=== PATIENT | female | born 1955 | race Hispanic/Latino ===

== ENCOUNTER 2018-06-01 10:37 | Inpatient (IN) | payer OTHER ==
[~2018-06-01] VITALS: Ht 165.1 cm; Wt 79.2 kg
[2018-06-01] VITALS (14 sets, daily range): BP systolic 88–108; BP diastolic 49–67
[2018-06-01] MEDS ORDERED: EPINEPHRINE 0.1 MG/ML 10 ML SYG IVP ONE (11:01)
[2018-06-01] MEDS ORDERED: ATROPINE SULFATE 0.1 MG/ML 10 ML SYG IVP ONE ×3 (11:01→15:11)
[2018-06-01] MEDS ORDERED: IOHEXOL 350 MG/ML 100ML INFUS..BTL IV ONE (12:06)
[2018-06-01] MEDS ORDERED: NITROGLYCERIN 5 MG/ML 10 ML VIAL IV ONE (12:06)
[2018-06-01] MEDS ORDERED: IOHEXOL-350 50ML VIAL IV ONE (12:06)
[2018-06-01] MEDS ORDERED: BIVALIRUDIN 250 MG/VIAL IV ONE (12:06)
[2018-06-01] MEDS ORDERED: LIDOCAINE HCL 2% 20ML ONE (12:07)
[2018-06-01] MEDS ORDERED: DOPAMINE HCL 400 MG/D5%-WATER 0 ML IV ONE (12:08)
[2018-06-01] MEDS ORDERED: DOPAMINE HCL 400 MG/D5%-WATER 250 ML IV ONE (15:11)
[2018-06-01] MEDS ORDERED: ETOMIDATE 2 MG/ML 10 ML VIAL IVP ONE (15:12)
[2018-06-01] MEDS ORDERED: SUCCINYLCHOLINE CHLORIDE 20 MG/ML 10 ML VIAL IVP ONE (15:12)
[2018-06-01] MEDS ORDERED: GLUCAGON 1MG KIT 1 MG ML IM PRN (15:15)
[2018-06-01] MEDS ORDERED: PHARMACY COMMUNICATION MISC SCH (15:15)
[2018-06-01] MEDS ORDERED: DEXTROSE 50%-WATER 50 ML DISP.SYRIN IV PRN (15:15)
--- NOTE | 2018-06-01 16:20 | NUR ---
PT RECEIVED FROM FUMIGATOR AND STERILIZER S/P LHC/RHC. RT GROIN ARTERIAL AND VENOUS SHEATHS HAVE BEEN REMOVED IN FUMIGATOR AND STERILIZER. NO HEMATOMA'S NOTED. PEDAL PULSES WEAK BILATERALLY. NO CHEST PAIN OR SOB. DR LÓPEZ NEPHROLOGY HAS BEEN PAGED, DR DUFFY NOTIFED BY FUMIGATOR AND STERILIZER AND DR SIMON TOLD VERBALLY OF PATIENT ARRIVAL TO ROOM
[2018-06-01] MEDS: INSULIN HUMULIN R 100 UNIT/ML 3ML SQ SCH ×2 (16:30→21:52)
--- NOTE | 2018-06-01 16:57 | NUR ---
DC PLAN VISITED WITH PATIENT. PATIENT LIVES WITH SPOUSE. INDEPENDENT ABLE TO PERFORM ADL'S. PATIENT HAS NO SERVICES OR DME'S. FEELS SAFE TO RETURN HOME. PATIENT IS A CARROLL TRANSFER FOR PROCEDURE. Addendum: 06/01/18 at 1659 by AMANDA WARE RN CM Amended: Links added.
--- NOTE | 2018-06-01 16:57 | NUR ---
DR Shweta LÓPEZ CAME TO SEE PATIENT
[2018-06-01] MEDS: SEVELAMER HCL 800 MG TABLET PO SCH (17:00)
[2018-06-01] MEDS ORDERED: FERROUS SULFATE 325 MG TABLET.DR PO SCH (17:00)
[2018-06-01] MEDS: SODIUM CHLORIDE 0.9% 10 ML VIAL IVP SCH ×2 (17:03→21:53)
--- NOTE | 2018-06-01 18:00 | NUR ---
DR YIN HERE SPOKE TO PATIENT AND FAMILY. INFORMED THEM THAT SHE IS HIGH RISK AND INOPERABLE-RECOMMENDS MEDICAL MANAGEMENT
[2018-06-01] MEDS ORDERED: MIDODRINE HCL 5 MG TABLET PO SCH (18:17)
--- NOTE | 2018-06-01 20:00 | NUR ---
ASSESSMENT. PT RESTING QUIETLY IN BED, O2 2L NC IN PLACE, FAMILY AT BEDSIDE. OPEN AREA TO COCCYX NOTED, OPEN TO AIR. ASSESSMENT COMPLETED, SEE FLOW SHEET. CALLBELL REVIEWED AND WITHIN REACH, WHITE BOARD UP-DATED.
[2018-06-01] MEDS ORDERED: ACETAMINOPHEN 325 MG TAB PO PRN ×2 (21:00)
[2018-06-01] MEDS: CARVEDILOL 3.125 MG TABLET PO SCH (21:00)
[2018-06-01] MEDS: DOCUSATE SODIUM 100 MG CAP PO SCH (21:38)
[2018-06-01] MEDS: MIDODRINE HCL 5 MG TABLET PO SCH (21:38)
[2018-06-01] MEDS: ATORVASTATIN CALCIUM 20 MG TABLET PO SCH (21:38)
[2018-06-01] MEDS: SENNOSIDES 8.6 MG TABLET PO SCH (21:49)
--- NOTE | 2018-06-01 22:00 | NUR ---
DR AURORA SIMON INTO SEE PT. SPOKE TO PT AND HER IN KYRGYZ, SEE ORDERS
[2018-06-02] VITALS (23 sets, daily range): BP systolic 88–116; BP diastolic 37–66
--- NOTE | 2018-06-02 | NUR ---
ASSESSMENT. PT RESTING QUIETLY IN BED, O2 2L NC IN PLACE, FAMILY AT BEDSIDE. ALLEVYN TO COCCYX. ASSESSMENT COMPLETED, SEE FLOW SHEET. BASIL REVIEWED AND WITHIN ABBE WATSON BOARD UP-DATED.
--- NOTE | 2018-06-02 04:00 | NUR ---
ASSESSMENT. PT RESTING QUIETLY IN BED, O2 2L NC IN PLACE, AT BEDSIDE. ALLEVYN TO COCCYX. ASSESSMENT COMPLETED, SEE FLOW SHEET. BASIL REVIEWED AND WITHIN WALTER, WHITE BOARD UP-DATED.
[2018-06-02 04:03] LABS: HEMATOCRIT 24.5 % (36-48); MEAN CORPUSCULAR HEMOGLOBIN 26.1 pg (27.0-33.0); MEAN CORPUSCULAR VOLUME 81.5 fL (79-99); NUCLEATED RED BLOOD CELLS 0.7 % (0.0-0.19); PLATELET COUNT (AUTO) 178 K/uL (130-400); WHITE BLOOD COUNT (AUTO) 8.7 K/uL (4.8-10.8)
[2018-06-02 04:20] LABS: ALBUMIN 2.4 g/dL (3.5-5.0); BILIRUBIN,TOTAL 0.6 mg/dL (0.2-1.0); CREATININE 4.9 mg/dL (0.5-1.5); PHOSPHORUS 4.8 mg/dL (2.5-4.9); POTASSIUM 4.2 mmol/L (3.5-5.1); TOTAL PROTEIN, SERUM 5.7 g/dL (6.0-8.3)
[2018-06-02 04:38] LABS: % IRON SATURATION 15.3 % (22-44)
[2018-06-02] MEDS: INSULIN HUMULIN R 100 UNIT/ML 3ML SQ SCH ×4 (06:18→20:47)
[2018-06-02] MEDS ORDERED: PANTOPRAZOLE SODIUM 40 MG TABLET.DR PO ONE (06:20)
[2018-06-02] MEDS: PANTOPRAZOLE SODIUM 40 MG TABLET.DR PO SCH ×2 (06:22→08:46)
[2018-06-02] MEDS: SODIUM CHLORIDE 0.9% 10 ML VIAL IVP SCH ×3 (06:23→23:15)
--- NOTE | 2018-06-02 07:04 | NUR ---
REPORT REPORT GIVEN TO HUNG GOVEA.
[2018-06-02] MEDS: HEPARIN SODIUM 5000UNIT/ML 1ML VIAL SQ SCH ×2 (08:44→21:02)
[2018-06-02] MEDS: ASPIRIN 81MG TAB.CHEW PO SCH (08:45)
[2018-06-02] MEDS: SENNOSIDES 8.6 MG TABLET PO SCH (08:45)
[2018-06-02] MEDS: DOCUSATE SODIUM 100 MG CAP PO SCH ×3 (08:46→21:00)
[2018-06-02] MEDS: CLOPIDOGREL BISULFATE 75 MG TAB PO SCH (08:46)
[2018-06-02] MEDS: SEVELAMER HCL 800 MG TABLET PO SCH ×3 (08:46→16:40)
[2018-06-02] MEDS: CARVEDILOL 3.125 MG TABLET PO SCH ×2 (08:47→21:00)
[2018-06-02] MEDS: MIDODRINE HCL 5 MG TABLET PO SCH ×4 (08:47→21:00)
[2018-06-02] MEDS ORDERED: ERGOCALCIFEROL (VITAMIN D2) 50,000 UNIT CAPSULE PO SCH (09:00)
[2018-06-02] MEDS: FERROUS FUMARATE 324 MG TABLET PO SCH (11:45)
[2018-06-02] MEDS: ISOSORBIDE MONO 30MG TAB SR PO SCH (11:45)
[2018-06-02] MEDS: RANOLAZINE 500 MG TAB.SR.12H PO SCH ×2 (11:45→21:00)
--- NOTE | 2018-06-02 13:30 | NUR ---
PT HAS BEEN TALKING WITH DR. LÓPEZ ABOUT DNR STATUS AND PAPERWORK WAS SIGNED. WAS AT THE BEDSIDE AND ALSO AGREED WITH PATIENT AND DR. LÓPEZ.
[2018-06-02] MEDS: EPOETIN ALFA 10,000 UNIT/ML VIAL SQ SCH (13:45)
[2018-06-02] MEDS ORDERED: ESCI10TA54 PO (14:11)
[2018-06-02] MEDS ORDERED: PANT40TA25 PO (14:11)
[2018-06-02] MEDS ORDERED: TRAM50TA4 PO (14:11)
[2018-06-02] MEDS ORDERED: AMLO10TA7 PO (14:11)
[2018-06-02] MEDS ORDERED: INSU100I26 SQ (14:11)
[2018-06-02] MEDS ORDERED: GUAI600T50 PO (14:11)
[2018-06-02] MEDS ORDERED: FERS325 PO (14:11)
[2018-06-02] MEDS ORDERED: EZET10TA26 PO (14:11)
[2018-06-02] MEDS ORDERED: CETI10TA57 PO (14:11)
[2018-06-02] MEDS ORDERED: LINA5TAB PO (14:11)
[2018-06-02] MEDS ORDERED: METO-408 PO (14:11)
[2018-06-02] MEDS ORDERED: KETO5DRO39 OD (14:11)
[2018-06-02] MEDS ORDERED: ATOR40TA71 PO (14:11)
--- NOTE | 2018-06-02 15:05 | NUR ---
PT REPORT GIVEN TO EVGENY NELSON RN. DAUGHTER QUESTIONING IF DNR MEANT THAT SHE WOULD NOT BE CARED FOR, DAUGHTER WAS REASSURED THAT HER MOTHER WOULD STILL BE GETTING ALL OF HER MEDS AND TREATMENTS ORDERED. PT TAKEN TO ROOM 232 VIA BED.
[2018-06-02] MEDS ORDERED: ALBUMIN (HUMAN) 25% 100 ML IV PRN ×2 (15:15→18:45)
--- NOTE | 2018-06-02 15:51 | NUR ---
PATIENT REQUESTED TO CANCEL DNR STATUS.
--- NOTE | 2018-06-02 16:00 | NUR ---
DAUGHTER AT BEDSIDE WAS VERY UPSET STATING THAT PATIENT DID NOT FULLY UNDERSTAND WHAT SIGNING THE DNR STATUS MEANT. DAUGHTER AND PATIENT DECIDED TO REVOKE DNR STATUS. PER DAUGHTER, IF PATIENT "IS NOT BREATHING BUT STILL HAS A PULSE, WE WANT EVERYTHING DONE TO KEEP HER ALIVE. IF SHE DOES NOT HAVE A HEART BEAT, THEN WE'LL LET HER BE.SHE'S FULL CODE RIGHT NOW AND WE WILL WORRY ABOUT IT WHEN IT HAPPENS".
--- NOTE | 2018-06-02 16:04 | NUR ---
SPOKE WITH UMANG RÍOS WEATHER ALGORITHM SCIENTIST AND INFORMED HER THAT DAUGHTER REVOKED DNR STATUS. SHE SAID THAT SHE WILL RELAY THIS TO DR. LÓPEZ WHO HAD ORDERED DNR STATUS EARLIER TODAY.
--- NOTE | 2018-06-02 16:28 | NUR ---
DAUGHTER AT BEDSIDE CALLED NURSES STATION AND C/O HEMODIALYSIS TAKING TOO LONG. SHE SAID THAT PATIENT IS HAVING TROUBLE BREATHING. O2 SAT CHECKED. 100% ON 3L PER NASAL CANNULA. CALLED HEMODIALYSIS NURSE ZONING ASSISTANT,AWA AND INFORMED HIM THAT PATIENT NEEDS BE DIALYSED TODAY ORDERED. HE SAID THAT HE IS IN ANOTHER HOSPITAL AT THIS TIME. CALLED BALJEET GOVEA WHO IS CURRENTLY IN 4TH FLOOR AND SAID THAT SHE IS DIALYSING ANOTHER PATIENT AT THIS TIME BUT WILL CHECK ON MS. [place] ONCE DONE. INFORMED PATIENT AND FAMILY MEMBER OF THIS. WILL CONTINUE TO MONITOR PATIENT.
[2018-06-02] MEDS ORDERED: ALBUMIN (HUMAN) 25% 200 ML IV ONE (17:47)
[2018-06-02 19:55] LABS: ALBUMIN 3.5 g/dL (3.5-5.0)
[2018-06-02 20:26] LABS: % IRON SATURATION 20.3 % (22-44)
[2018-06-02] MEDS ORDERED: SODIUM CHLORIDE 0.9% 1000ML 1,000 ML IV ONE (20:31)
[2018-06-02 20:41] LABS: HEMATOCRIT 23.3 % (36-48)
[2018-06-02] MEDS: ATORVASTATIN CALCIUM 20 MG TABLET PO SCH (21:00)
[2018-06-03] VITALS (24 sets, daily range): BP systolic 77–98; BP diastolic 45–77
[2018-06-03 03:45] LABS: HEMATOCRIT 23.2 % (36-48); MEAN CORPUSCULAR HEMOGLOBIN 25.3 pg (27.0-33.0); MEAN CORPUSCULAR HGB CONC 31.3 g/dL (32.0-36.0); MEAN CORPUSCULAR VOLUME 80.8 fL (79-99); NUCLEATED RED BLOOD CELLS 0.4 % (0.0-0.19); PLATELET COUNT (AUTO) 177 K/uL (130-400); RED BLOOD CELL COUNT(AUTO) 2.87 MIL/uL (4.00-5.50); RED CELL DISTRIBUTION WIDTH 18.2 % (11.0-15.5); WHITE BLOOD COUNT (AUTO) 7.8 K/uL (4.8-10.8)
[2018-06-03 04:02] LABS: EOSINOPHILS % (MANUAL) 2 % (1-6); LYMPHOCYTES % (MANUAL) 22 % (22-44); MONOCYTES % (MANUAL) 5 % (2-9); SEGMENTED NEUTROPHILS % 71 % (40-70)
[2018-06-03 04:03] LABS: MAN.DIFF COMMENT-IMPRESSION MANUAL DIFFERENTIAL
[2018-06-03 04:21] LABS: CREATININE 3.8 mg/dL (0.5-1.5); POTASSIUM 4.2 mmol/L (3.5-5.1)
[2018-06-03] MEDS: SODIUM CHLORIDE 0.9% 10 ML VIAL IVP SCH ×3 (06:24→20:25)
[2018-06-03] MEDS: INSULIN HUMULIN R 100 UNIT/ML 3ML SQ SCH ×4 (06:25→20:20)
[2018-06-03] MEDS: CITALOPRAM 20 MG TABLET PO SCH (08:37)
[2018-06-03] MEDS: ISOSORBIDE MONO 30MG TAB SR PO SCH (08:37)
[2018-06-03] MEDS: CARVEDILOL 3.125 MG TABLET PO SCH ×2 (08:37→19:50)
[2018-06-03] MEDS: ASPIRIN 81MG TAB.CHEW PO SCH (08:38)
[2018-06-03] MEDS: SENNOSIDES 8.6 MG TABLET PO SCH (08:38)
[2018-06-03] MEDS: FERROUS FUMARATE 324 MG TABLET PO SCH (08:38)
[2018-06-03] MEDS: CLOPIDOGREL BISULFATE 75 MG TAB PO SCH (08:38)
[2018-06-03] MEDS: SEVELAMER HCL 800 MG TABLET PO SCH ×3 (08:38→17:00)
[2018-06-03] MEDS: MIDODRINE HCL 5 MG TABLET PO SCH ×4 (08:38→20:13)
[2018-06-03] MEDS: DOCUSATE SODIUM 100 MG CAP PO SCH ×3 (08:38→19:50)
[2018-06-03] MEDS: RANOLAZINE 500 MG TAB.SR.12H PO SCH ×2 (08:43→21:09)
[2018-06-03] MEDS: HEPARIN SODIUM 5000UNIT/ML 1ML VIAL SQ SCH ×2 (10:10→20:19)
--- NOTE | 2018-06-03 12:20 | NUR ---
DR. LÓPEZ IS MAKING HIS ROUNDS. EXPLAINED TO PATIENT AND SPOUSE AT BEDSIDE HER PROGNOSIS. DR. LÓPEZ MENTIONED HOSPICE BUT SHE REFUSED THEIR SERVICES AT THIS TIME. ALL MEDS REVIEWED. IS AWARE OF HYPOTENSION.
[2018-06-03] MEDS: IRON SUCROSE COMPLEX 100 MG in SODIUM CHLORIDE 0.9% 50 ML IV SCH (12:22)
--- NOTE | 2018-06-03 12:50 | NUR ---
DAUGHTER AT BEDSIDE REQUESTED THAT DNR FORM SIGNED YESTERDAY BE REMOVED FROM PATIENT'S MEDICAL RECORDS. I INFORMED HER THAT THIS CANNOT BE DONE FORM ALREADY IS A LEGAL DOCUMENT BECAUSE IT WAS SIGNED. DAUGHTER THEN HANDED A HANDWRITTEN LETTER STATING THAT THE [place] FAMILY HAD REVOKED DNR STATUS YESTERDAY. SEE LETTER IN CHART.
--- NOTE | 2018-06-03 13:00 | NUR ---
DAUGHTER VOICED THAT SHE AND PATIENT ARE VERY UPSET THAT DOCTORS KEEP TELLING HER THAT SHE WILL WITHIN 6 MONTHS. THIS IS MAKING HER MOTHER MORE DEPRESSED. DAUGHTER REQUESTED FOR HOSPITAL PERSONNEL TO REFRAIN FROM TALKING ABOUT HOSPICE AND TELLING HER AGAIN HER PROGNOSIS SHE ALREADY KNOWS AND HAD ACCEPTED IT.
[2018-06-03] MEDS: EPOETIN ALFA 10,000 UNIT/ML VIAL SQ SCH (13:45)
--- NOTE | 2018-06-03 14:40 | NUR ---
1412 PATIENT WAS FOUND UNRESPONSIVE BY FAMILY MEMBERS. TELE MONITOR REPORTED SINUS ALON IN THE 40'S. (+) PULSE AND (+) BREATHING. VITAL SIGNS TAKEN. CODE BLUE CALLED. SEE CODE DOCUMENTATION. PATIENT WAS TRANSFERRED TO [facility]. WHEN ASKED ONCE AGAIN ABOUT HER CODE STATUS, PATIENT DEFERRED THIS TO HER DAUGHTERS WHO SAID THAT THEY WOULD WAIT FOR THEIR FATHER.
--- NOTE | 2018-06-03 19:30 | NUR ---
ASSESSMENT. PT RESTING QUIETLY IN BED, O2 3L NC IN PLACE, FAMILY AT BEDSIDE. JAYDAVYN NOTED TO MILDRED. ASSESSMENT COMPLETED, SEE FLOW SHEET. BASIL REVIEWED AND WITHIN ABBE WATSON BOARD UP-DATED.
[2018-06-03] MEDS: ATORVASTATIN CALCIUM 20 MG TABLET PO SCH (20:12)
--- NOTE | 2018-06-03 23:00 | NUR ---
ASSESSMENT. PT RESTING QUIETLY IN BED, BIPAP IN PLACE. AT BEDSIDE. IV FLUIDS INFUSING WITHOUT DIFFICULTY. ASSESSMENT COMPLETED, SEE FLOW SHEET. CALLBELL WITHIN REACH.
[2018-06-03] MEDS ORDERED: [UNRECOGNIZED DRUG - OTHER] IV ONE (23:16)
[2018-06-03] MEDS ORDERED: DOPAMINE IV ONE (23:16)
[2018-06-04] VITALS (24 sets, daily range): BP systolic 87–130; BP diastolic 43–71
--- NOTE | 2018-06-04 03:00 | NUR ---
ASSESSMENT. PT RESTING QUIETLY IN BED, BIPAP IN PLACE. AT BEDSIDE. IV FLUIDS INFUSING WITHOUT DIFFICULTY. ASSESSMENT COMPLETED, SEE FLOW SHEET. CALLBELL WITHIN REACH.
[2018-06-04 04:01] LABS: POTASSIUM 5.9 mmol/L (3.5-5.1)
[2018-06-04] MEDS: SODIUM CHLORIDE 0.9% 10 ML VIAL IVP SCH ×3 (05:53→22:59)
[2018-06-04] MEDS: INSULIN HUMULIN R 100 UNIT/ML 3ML SQ SCH ×4 (05:53→20:40)
[2018-06-04] MEDS: PANTOPRAZOLE SODIUM 40 MG TABLET.DR PO SCH (05:55)
--- NOTE | 2018-06-04 07:06 | NUR ---
REPORT REPORT GIVEN TO RADHA GOVEA.
[2018-06-04] MEDS: ISOSORBIDE MONO 30MG TAB SR PO SCH (08:11)
[2018-06-04] MEDS: RANOLAZINE 500 MG TAB.SR.12H PO SCH ×2 (08:12→21:00)
[2018-06-04] MEDS: CLOPIDOGREL BISULFATE 75 MG TAB PO SCH (08:12)
[2018-06-04] MEDS: ASPIRIN 81MG TAB.CHEW PO SCH (08:13)
[2018-06-04] MEDS: SENNOSIDES 8.6 MG TABLET PO SCH (08:13)
[2018-06-04] MEDS: SEVELAMER HCL 800 MG TABLET PO SCH ×3 (08:13→17:22)
[2018-06-04] MEDS: CITALOPRAM 20 MG TABLET PO SCH (08:14)
[2018-06-04] MEDS: CARVEDILOL 3.125 MG TABLET PO SCH ×2 (08:15→21:02)
[2018-06-04] MEDS: IRON SUCROSE COMPLEX 100 MG in SODIUM CHLORIDE 0.9% 50 ML IV SCH (08:16)
[2018-06-04] MEDS: HEPARIN SODIUM 5000UNIT/ML 1ML VIAL SQ SCH ×2 (08:17→21:03)
[2018-06-04] MEDS: DOCUSATE SODIUM 100 MG CAP PO SCH ×3 (08:22→21:01)
[2018-06-04] MEDS: FERROUS FUMARATE 324 MG TABLET PO SCH (08:23)
[2018-06-04] MEDS: MIDODRINE HCL 5 MG TABLET PO SCH ×4 (08:24→22:58)
[2018-06-04] MEDS ORDERED: ONDANSETRON HCL 4 MG/2 ML VIAL ONE (10:07)
--- NOTE | 2018-06-04 10:30 | NUR ---
MEETING W/ FAMILY AND DR SIMON/ DR Jojo LÓPEZ - DNR TO DISCUSS DNR STATUS WITH FAMILY MEMBERS, DR SIMON AND DR LÓPEZ AT BEDSIDE NOW. FAMILY INFORMED OF PATIENT'S TERMINAL ILLNESS, EXPLAINED THAT PATIENT HAS NOW CODED MULTIPLE TIMES AT ANCHORAGE AND NOW HERE YESTERDAY, AND ASSURED FAMILY THAT MAKING A PATIENT 'DNR' DOES NOT MEAN THAT TREATMENTS STOP OR THAT THE PATIENT 'WANTS TO '. DAUGHTER STATES THAT THEY READ AN ARTICLE ONLINE THAT EXPLAINED WHEN A PATIENT SIGNS A DNR THE DOCTORS BELIEVE THE PATIENT WANTS TO AND SO THEY NO LONGER PAY ATTENTION TO THE PATIENT OR COME BY EVERYDAY. FAMILY SIGNED DNR
[2018-06-04] MEDS ORDERED: MORPHINE SULFATE 2 MG/ML 1ML SYG IVP PRN (11:00)
[2018-06-04] MEDS ORDERED: COMPOUND IV MISC 1 EACH IVSOLN MISC PRN (11:30)
[2018-06-04] MEDS: EPOETIN ALFA 10,000 UNIT/ML VIAL SQ SCH (13:45)
--- NOTE | 2018-06-04 16:00 | NUR ---
cm note call made to hannah sevilla at [facility] [phone] , and states that she was [place] [facility] states she referred HD setup to [facility] and [facility] and both denied due to insurance, then referred to [facility] ph# [phone] , states their md dr arthur, spoke to Trevino at [facility] and agreed to take pt at [facility], but, now is pending for financial clearance at [facility] dialysis. i spoke to JACEK infante at [facility] and he confirmed that they are pending financial clearance, but info was faxed to them by [facility] if anything pending they will call [facility]. updated jennifer primary nurse. on above.
[2018-06-04] MEDS ORDERED: SODIUM CHLORIDE 0.9% 1000ML 1,000 ML IV PRN (17:00)
[2018-06-04] MEDS ORDERED: 0.9% SODIUM CHLORIDE 1000 ML IV BAG IV PRN (17:00)
[2018-06-04] MEDS: HEPARIN SODIUM 5000UNIT/ML 1ML VIAL IJ PRN (17:05)
[2018-06-04] MEDS ORDERED: HYDROMORPHONE HCL 0.5 MG/0.5 ML ML IVP PRN (19:00)
[2018-06-04] MEDS ORDERED: DOPAMINE 800MG/D5 250ML 250 ML IV ONE (19:07)
[2018-06-04] MEDS: ATORVASTATIN CALCIUM 20 MG TABLET PO SCH (21:00)
[2018-06-05] VITALS (31 sets, daily range): BP systolic 92–143; BP diastolic 49–78
[2018-06-05 05:09] LABS: HEMATOCRIT 27.1 % (36-48); MEAN CORPUSCULAR HEMOGLOBIN 25.3 pg (27.0-33.0); MEAN CORPUSCULAR VOLUME 81.5 fL (79-99); NUCLEATED RED BLOOD CELLS 0.9 % (0.0-0.19); PLATELET COUNT (AUTO) 228 K/uL (130-400); RED BLOOD CELL COUNT(AUTO) 3.33 MIL/uL (4.00-5.50); RED CELL DISTRIBUTION WIDTH 18.4 % (11.0-15.5); WHITE BLOOD COUNT (AUTO) 15.3 K/uL (4.8-10.8)
[2018-06-05 05:32] LABS: CREATININE 3.9 mg/dL (0.5-1.5)
[2018-06-05] MEDS: SODIUM CHLORIDE 0.9% 10 ML VIAL IVP SCH ×3 (06:52→22:41)
[2018-06-05] MEDS: INSULIN HUMULIN R 100 UNIT/ML 3ML SQ SCH ×4 (06:53→21:00)
[2018-06-05] MEDS: SENNOSIDES 8.6 MG TABLET PO SCH (07:49)
[2018-06-05] MEDS: SEVELAMER HCL 800 MG TABLET PO SCH ×3 (07:49→17:26)
[2018-06-05] MEDS: PANTOPRAZOLE SODIUM 40 MG TABLET.DR PO SCH (07:49)
[2018-06-05] MEDS: ASPIRIN 81MG TAB.CHEW PO SCH (07:49)
[2018-06-05] MEDS: ISOSORBIDE MONO 30MG TAB SR PO SCH (07:50)
[2018-06-05] MEDS: CARVEDILOL 3.125 MG TABLET PO SCH ×2 (07:50→22:18)
[2018-06-05] MEDS: FERROUS FUMARATE 324 MG TABLET PO SCH (07:50)
[2018-06-05] MEDS: RANOLAZINE 500 MG TAB.SR.12H PO SCH ×2 (07:50→22:19)
[2018-06-05] MEDS: CLOPIDOGREL BISULFATE 75 MG TAB PO SCH (07:55)
[2018-06-05] MEDS: IRON SUCROSE COMPLEX 100 MG in SODIUM CHLORIDE 0.9% 50 ML IV SCH (07:56)
[2018-06-05] MEDS: CITALOPRAM 20 MG TABLET PO SCH (07:59)
[2018-06-05] MEDS: MIDODRINE HCL 5 MG TABLET PO SCH ×4 (08:00→22:17)
[2018-06-05] MEDS: DOCUSATE SODIUM 100 MG CAP PO SCH ×3 (08:03→22:17)
[2018-06-05] MEDS: HEPARIN SODIUM 5000UNIT/ML 1ML VIAL SQ SCH ×2 (08:03→22:30)
[2018-06-05 08:17] LABS: HEPATITIS Bs ANTIGEN SCREEN P Negative (Negative)
[2018-06-05 09:52] LABS: INR 1.75 (0.85-1.15); PARTIAL THROMBOPLASTIN TIME 35.9 SEC (26.3-35.5); PROTHROMBIN TIME 18.2 SEC (9.6-11.6)
--- NOTE | 2018-06-05 15:05 | NUR ---
U/S GD LEFT THORACENTESIS PROCEDURE PERFORMED BY DR JOHNSON. PUNCTURE SITE LEFT POSTERIOR BACK AND PATIENT TOLERATED PROCEDURE WELL. TOTAL REMOVED 1.5 LITERS OF CLOUDY YELLOW PLEURAL FLUID. END OF PROCEDURE AT 1515. CATHETER REMOVED AND DRESSING APPLIED. NO BLEEDING NOTED. POST CHEST X-RAY TAKEN AND READ BY DR JOHNSON. NO PNEUMOTHORAX SEEN. REPORT GIVEN TO JEFERSON MAYS AND PATIENT TRANSPORTED TO 209 VIA BED. STABLE, AAO X3 WITH NO C/O PAIN.
[2018-06-05 16:42] LABS: SPECIMENTYPE,BODY FLUID PLEURAL
[2018-06-05 16:43] LABS: APPEARANCE BODY FLUID CLEAR (CLEAR); BODY FLUID RBC 65 /cu. mm.; BODY FLUID WBC 139 /cu. mm.; COLOR,BODY FLUID YELLOW (LT YELLOW); TOTAL VOLUME,BODY FLUID 1500 mL
[2018-06-05 16:54] LABS: BF LYMPHOCYTE 58 %; BF OTHER CELLS 3
[2018-06-05] MEDS: ATORVASTATIN CALCIUM 20 MG TABLET PO SCH (22:18)
[2018-06-06] VITALS (44 sets, daily range): BP systolic 65–180; BP diastolic 20–106
[2018-06-06] MEDS: DOPAMINE 800MG/D5 250ML 250 ML IV PRN ×2 (01:15→16:29)
[2018-06-06] MEDS: SODIUM CHLORIDE 0.9% 10 ML VIAL IVP SCH ×3 (05:42→23:15)
[2018-06-06 05:49] LABS: MAGNESIUM 1.8 mg/dL (1.80-2.40); PHOSPHORUS 5.9 mg/dL (2.5-4.9); POTASSIUM 4.9 mmol/L (3.5-5.1); TOTAL PROTEIN, SERUM 5.5 g/dL (6.0-8.3)
[2018-06-06 05:55] LABS: HEMATOCRIT 26.9 % (36-48); MEAN CORPUSCULAR HEMOGLOBIN 25.6 pg (27.0-33.0); MEAN CORPUSCULAR HGB CONC 31.5 g/dL (32.0-36.0); NUCLEATED RED BLOOD CELLS 1.2 % (0.0-0.19); PLATELET COUNT (AUTO) 194 K/uL (130-400); RED BLOOD CELL COUNT(AUTO) 3.32 MIL/uL (4.00-5.50); RED CELL DISTRIBUTION WIDTH 19.6 % (11.0-15.5); WHITE BLOOD COUNT (AUTO) 11.2 K/uL (4.8-10.8)
[2018-06-06] MEDS: INSULIN HUMULIN R 100 UNIT/ML 3ML SQ SCH ×5 (07:30→21:00)
[2018-06-06] MEDS: RANOLAZINE 500 MG TAB.SR.12H PO SCH ×2 (08:05→20:22)
[2018-06-06] MEDS: CLOPIDOGREL BISULFATE 75 MG TAB PO SCH (08:05)
[2018-06-06] MEDS: ASPIRIN 81MG TAB.CHEW PO SCH (08:05)
[2018-06-06] MEDS: SEVELAMER HCL 800 MG TABLET PO SCH ×3 (08:05→16:35)
[2018-06-06] MEDS: SENNOSIDES 8.6 MG TABLET PO SCH (08:06)
[2018-06-06] MEDS: DOCUSATE SODIUM 100 MG CAP PO SCH ×3 (08:06→20:22)
[2018-06-06] MEDS: PANTOPRAZOLE SODIUM 40 MG TABLET.DR PO SCH (08:06)
[2018-06-06] MEDS: MIDODRINE HCL 5 MG TABLET PO SCH ×3 (08:06→20:22)
[2018-06-06] MEDS: IRON SUCROSE COMPLEX 100 MG in SODIUM CHLORIDE 0.9% 50 ML IV SCH (08:14)
[2018-06-06] MEDS: CITALOPRAM 20 MG TABLET PO SCH (08:18)
[2018-06-06] MEDS: FERROUS FUMARATE 324 MG TABLET PO SCH (08:18)
[2018-06-06] MEDS: ONDANSETRON HCL 4 MG/2 ML VIAL IVP PRN ×2 (08:21→17:32)
[2018-06-06] MEDS: HEPARIN SODIUM 5000UNIT/ML 1ML VIAL SQ SCH ×2 (09:41→20:23)
[2018-06-06] MEDS: HEPARIN SODIUM 5000UNIT/ML 1ML VIAL IJ PRN (12:10)
--- NOTE | 2018-06-06 12:30 | NUR ---
PT HAS FINISHED AND TOLERATED DIALYSIS TREATMENT WITH NO COMPLICATIONS. SHE IS ALERT AND CALM. BEING VISITED BY FAMILY. I HAVE SAT HER ON SIDE OF BED FOR MEAL
--- NOTE | 2018-06-06 12:30 | NUR ---
DIRECTIVES Kike called by Trisha, Pt Advocate. Daughters requesting to speak to KIKE about doing MPOA/Directives with pt. Daughters upset about DNR and hospice being pushed on family and pt. Kike and Trisha met with 2 daughters who stated that "everyone thinks they do not understand the severity of their mother's condition but they do". Daughter upset that doctors and staff are repeatedly telling pt that she is going to . Daughter states that staff had pt sign DNR and pt did not clearly understand what she was signing. Daughter stated that Dr Dias told them that dopamine could be stopped and pt made comfortable until she passed. "Doing that would be criminal", " my mom wants to live, my mom wants to go home". Kike provided emotional support and tried to explain to daughters that since pt is alert and oriented, the doctors will speak directly to pt. Doctors also have to explain to pt all the risks that pt may have related to any treatment. If the pt is willing to accept the risks that go with the treatment, then the pt has made an informed decision. If is one of the risks, the pt has a right to know this. Doctors and staff have to make sure pt is understanding this. Daughter states she wants SW to complete MPOA with pt. Kike explained to daughters that when I speak to pt, I also have to discuss with her END of Life issues, because she needs to make those decisions, so the MPOA can make sure her wishes are honored. Kike explained to daughters that even if MPOA was in place, they have no power till MD documents that pt is not able to make decisions. I also explained to them that if pt signed Directives, MPOA can not change them. I have to make sure that pt understands what she is signing, because this is a legal document. I also informed daughters that if no MPOA was signed, pt's would become decision maker. I again stress if I spoke to pt about MPOA, directives would have to be discussed. Daughters did not want me to discuss directives with pt. "My mother is happy, she is not suffering" "she does not c/o pain or shortness of breath, she is happy" " how can I tell her mom, we are stopping everything so you will ". "If I saw that my mother was suffering I would want her made comfortable." Kike educated daughters on Dr João Madera, and [facility] hospice. Daughters agreeable to speaking with him. SW spoke to Dr Madera and he is out of town till Monday. Daughter agreeable to seeing him when he returns.
--- NOTE | 2018-06-06 17:11 | NUR ---
Nutrition intervention: Nutrition notification for LOS x5. Pt currently on renal dialysis, 75gm diet with poor po intake. As per pt's daughter at bedside, pt with altered taste to meats. RD has encouraged nutrition supplementation to have protein intake. Pt has verbalized agreement. Pt to receive supplement BID. Pt new to dialysis, diet education pending. Recommendations: Continue current diet therapy. Nutrition supplementation BID. Dialysis diet education by RD Consult RD as nutrition concerns arise. Addendum: 06/06/18 at [address] Amended: Links added.
--- NOTE | 2018-06-06 19:23 | NUR ---
HAND OFF REPORT GIVEN TO JENNY GOVEA
--- NOTE | 2018-06-06 19:35 | NUR ---
BENCHMARK ROSAMARIA HOLLY E BUSINESS PROJECT MANAGER AT BEDSIDE UPDATED ON HYPOTENSION PT AWAKE AND ALERT SEEMS ASYMPTOMATIC. NEW ORDERS RECEIVED AND WILL BE CARRIED OUT.
[2018-06-06] MEDS ORDERED: MIDODRINE HCL 5 MG TABLET PO PRN (19:45)
[2018-06-06] MEDS: ATORVASTATIN CALCIUM 20 MG TABLET PO SCH (20:22)
--- NOTE | 2018-06-06 21:06 | NUR ---
ANURAG VÁZQUEZ NOTIFIED OF CHEMICAL CODE NEW ORDERS FOR EPI DRIP GIVEN WILL CONTINUE TO MONITOR. Addendum: 06/06/18 at 2232 by IZAIAH VINCENT RN RN ERROR IN TIME [id number]
--- NOTE | 2018-06-06 21:42 | NUR ---
CHEMICAL CODE CALLED TO ROOM BY ASKING IF PUMP IS WORK DOPAMINE INFUSING WELL. HR THE DROPPED FROM 60'S TO 20'S BRADYCARDIA NO PULSE FELT AND PT AGONAL BREATHING CHEMICAL CODE BLUE CALLED. PT GIVEN 1 AMP OF ATROPINE AND 1 AMP OF EPI AND BAGGED VIA MASK. CHEMICAL CODE CALLED OFF AT 2150 HR 90'S SR, BP 1664/71 PT BECOMING MORE RESPONSIVE. AT BEDSIDE AND DAUGHTERS CALLED. Addendum: 06/06/18 at 2233 by IZAIAH VINCENT RN RN DOPAMINE WAS INCREASED DURING EPISODE TO 20MCG/KG/MIN
--- NOTE | 2018-06-06 21:55 | NUR ---
BIPAP PT PLACED ON PRN BIPAP.
--- NOTE | 2018-06-06 22:06 | NUR ---
ANURAG VÁZQUEZ NOTIFIED OF CHEMICAL CODE NEW ORDERS FOR EPI DRIP GIVEN WILL CONTINUE TO MONITOR.
[2018-06-06] MEDS ORDERED: EPINEPHRINE 1 MG/ML AMPULE ONE (22:11)
[2018-06-06] MEDS ORDERED: SODIUM CHLORIDE 0.9% 250 ML IV ONE (22:11)
--- NOTE | 2018-06-06 22:15 | NUR ---
EPI EPI DRIP STARTED AT 1MCG/MIN WILL CONTINUE TO MONITOR.
[2018-06-07] VITALS (29 sets, daily range): BP systolic 90–164; BP diastolic 37–93
--- NOTE | 2018-06-07 00:20 | NUR ---
CHAPLAIN CHAPLAIN MCDERMOTT CALLED AT THIS TIME PER FAMILY REQUEST.
--- NOTE | 2018-06-07 01:00 | NUR ---
CHAPLAIN CHAPLAIN MCDERMOTT AT BEDSIDE WITH FAMILY AND PATIENT.
[2018-06-07 05:21] LABS: CREATININE 4.1 mg/dL (0.5-1.5)
[2018-06-07] MEDS: DOPAMINE 800MG/D5 250ML 250 ML IV PRN ×2 (06:11→10:46)
[2018-06-07 06:31] LABS: CORRECTED WHITE BLOOD COUNT 10.3 K/uL (4.5-11.0); HEMATOCRIT 27.7 % (36-48); MEAN CORPUSCULAR HEMOGLOBIN 25.9 pg (27.0-33.0); MEAN CORPUSCULAR HGB CONC 30.9 g/dL (32.0-36.0); MEAN CORPUSCULAR VOLUME 83.6 fL (79-99); NUCLEATED RED BLOOD CELLS 4.7 % (0.0-0.19); RED BLOOD CELL COUNT(AUTO) 3.31 MIL/uL (4.00-5.50); RED CELL DISTRIBUTION WIDTH 19.8 % (11.0-15.5); WHITE BLOOD COUNT (AUTO) 10.8 K/uL (4.8-10.8)
[2018-06-07] MEDS: INSULIN HUMULIN R 100 UNIT/ML 3ML SQ SCH ×4 (06:31→20:40)
--- NOTE | 2018-06-07 07:48 | NUR ---
PT ASSESSED- HIGH RISK FOR ASPIRATION, SHE IS ON BIPAP /WEAK AND RESTLESS. WILL KEEP NPO FOR NOW. AT BEDSIDE. PT NOTED TO HAVE TREMORS TO HANDS. REPOSITIONED AND MADE COMFORTABLE POSSIBLE. SHE IS ON EPINEPHRINE AND DOPAMINE TO MAINTAIN HER BP. SOB ON EXERTION.
[2018-06-07] MEDS: EPINEPHRINE 2 MG in SODIUM CHLORIDE 0.9% 250 ML IV PRN ×2 (08:26→17:46)
[2018-06-07] MEDS: ASPIRIN 81MG TAB.CHEW PO SCH (09:00)
[2018-06-07] MEDS: DOCUSATE SODIUM 100 MG CAP PO SCH ×3 (09:00→19:42)
[2018-06-07] MEDS: RANOLAZINE 500 MG TAB.SR.12H PO SCH ×2 (09:00→19:42)
[2018-06-07] MEDS: MIDODRINE HCL 5 MG TABLET PO SCH ×3 (09:00→19:42)
[2018-06-07] MEDS: CLOPIDOGREL BISULFATE 75 MG TAB PO SCH (09:00)
[2018-06-07] MEDS: CITALOPRAM 20 MG TABLET PO SCH (09:00)
[2018-06-07] MEDS: SENNOSIDES 8.6 MG TABLET PO SCH (09:00)
--- NOTE | 2018-06-07 09:40 | NUR ---
PT IS STILL RESTLESS- NEEDS TO BE REPOSITIONED FREQUENTLY. SHE HAS WOKEN UP BUT CANNOT TRULY EXPRESS HERSELF AND APPEARS CONFUSED AND DISHEVELED.FERNANDA
--- NOTE | 2018-06-07 09:47 | NUR ---
AT BEDSIDE AND HE HAS BEEN SPOKEN TO BY DR. China LÓPEZ/DR SIMON/DR BARAJAS. PT AWARE OF POOR PROGNOSIS
[2018-06-07] MEDS: SODIUM CHLORIDE 0.9% 10 ML VIAL IVP SCH ×3 (10:27→22:30)
[2018-06-07] MEDS: IRON SUCROSE COMPLEX 100 MG in SODIUM CHLORIDE 0.9% 50 ML IV SCH (10:28)
[2018-06-07] MEDS: HEPARIN SODIUM 5000UNIT/ML 1ML VIAL SQ SCH ×2 (10:29→20:20)
[2018-06-07] MEDS: SEVELAMER HCL 800 MG TABLET PO SCH ×3 (10:40→16:26)
[2018-06-07] MEDS: PANTOPRAZOLE SODIUM 40 MG TABLET.DR PO SCH (10:40)
--- NOTE | 2018-06-07 15:39 | NUR ---
Renal dialysis diet education: Pt with change of status from yesterday to today, with BIPAP treatments-NPO diet therapy. Provided pt's daughter with diet education. Explained to daughters that RD will return to re-educate when pt's medical status improves as it is preferred that pt is present and alert during diet education. Pt's daughters agree. Printed information provided to pt's daughters and reviewed. Daughters have been encouraged to gather nutritional questions based on printed materials provided and based on their own diet research to discuss with RD at f/u education visit. Addendum: 06/07/18 at [address] Amended: Links added.
--- NOTE | 2018-06-07 16:23 | NUR ---
PT TAKEN OFF BIPAP AND PLACED ON 100% NRB. ORAL CARE DONE. SHE IS TOLERATING BEING OFF BIPAP. I NOTIFIED Travis HOLLY PAPER BOX MAKER AND SHE GAVE ORDERS FOR 02 THERAPIES. WILL MONITOR PATIENT AND TREAT ACCORDINGLY
[2018-06-07] MEDS: ATORVASTATIN CALCIUM 20 MG TABLET PO SCH (19:42)
[2018-06-08] VITALS (24 sets, daily range): BP systolic 104–145; BP diastolic 29–80
[2018-06-08] MEDS: DOPAMINE 800MG/D5 250ML 250 ML IV PRN ×2 (00:40→18:13)
[2018-06-08 03:46] LABS: HEMATOCRIT 28.5 % (36-48); MEAN CORPUSCULAR HEMOGLOBIN 26.2 pg (27.0-33.0); MEAN CORPUSCULAR HGB CONC 32.2 g/dL (32.0-36.0); MEAN CORPUSCULAR VOLUME 81.4 fL (79-99); NUCLEATED RED BLOOD CELLS 1.7 % (0.0-0.19); PLATELET COUNT (AUTO) 173 K/uL (130-400); RED CELL DISTRIBUTION WIDTH 19.5 % (11.0-15.5); WHITE BLOOD COUNT (AUTO) 15.9 K/uL (4.8-10.8)
[2018-06-08 04:01] LABS: CREATININE 4.9 mg/dL (0.5-1.5); MAGNESIUM 1.8 mg/dL (1.80-2.40); PHOSPHORUS 6.4 mg/dL (2.5-4.9); POTASSIUM 5.1 mmol/L (3.5-5.1)
--- NOTE | 2018-06-08 05:16 | NUR ---
BATH PT REFUSED BED BATH AT THIS TIME DAUGHTER AT BEDSIDE AND AWARE.
[2018-06-08] MEDS: ONDANSETRON HCL 4 MG/2 ML VIAL IVP PRN ×2 (06:09→16:01)
[2018-06-08] MEDS: INSULIN HUMULIN R 100 UNIT/ML 3ML SQ SCH ×4 (06:18→20:50)
[2018-06-08] MEDS: SODIUM CHLORIDE 0.9% 10 ML VIAL IVP SCH ×3 (06:18→20:50)
[2018-06-08] MEDS: SEVELAMER HCL 800 MG TABLET PO SCH ×3 (08:00→15:57)
[2018-06-08] MEDS: DOCUSATE SODIUM 100 MG CAP PO SCH ×3 (08:45→20:37)
[2018-06-08] MEDS: SENNOSIDES 8.6 MG TABLET PO SCH (08:45)
[2018-06-08] MEDS: MIDODRINE HCL 5 MG TABLET PO SCH ×3 (08:45→20:37)
[2018-06-08] MEDS: IRON SUCROSE COMPLEX 100 MG in SODIUM CHLORIDE 0.9% 50 ML IV SCH (08:51)
[2018-06-08] MEDS: HEPARIN SODIUM 5000UNIT/ML 1ML VIAL SQ SCH ×2 (09:47→20:49)
[2018-06-08] MEDS: EPINEPHRINE 2 MG in SODIUM CHLORIDE 0.9% 250 ML IV PRN (13:10)
[2018-06-08] MEDS: ASPIRIN 81MG TAB.CHEW PO SCH (15:56)
[2018-06-08] MEDS: CLOPIDOGREL BISULFATE 75 MG TAB PO SCH (15:57)
[2018-06-08] MEDS: PANTOPRAZOLE SODIUM 40 MG TABLET.DR PO SCH (15:57)
[2018-06-08] MEDS: RANOLAZINE 500 MG TAB.SR.12H PO SCH ×2 (15:57→20:37)
[2018-06-08] MEDS: CITALOPRAM 20 MG TABLET PO SCH (15:57)
[2018-06-08] MEDS: ATORVASTATIN CALCIUM 20 MG TABLET PO SCH (20:37)
[2018-06-09] VITALS (28 sets, daily range): BP systolic 66–138; BP diastolic 37–79
[2018-06-09] MEDS: EPINEPHRINE 2 MG in SODIUM CHLORIDE 0.9% 250 ML IV PRN (01:19)
[2018-06-09] MEDS: SODIUM CHLORIDE 0.9% 10 ML VIAL IVP SCH ×3 (05:09→22:05)
[2018-06-09] MEDS: INSULIN HUMULIN R 100 UNIT/ML 3ML SQ SCH ×4 (05:29→21:02)
[2018-06-09 05:40] LABS: BASOPHILS % (AUTO) 0.4 % (0.0-5.0); EOSINOPHILS % (AUTO) 0.5 % (0.0-8.0); HEMATOCRIT 31.5 % (36-48); LYMPHOCYTES % (AUTO) 7.7 % (21.0-51.0); MEAN CORPUSCULAR HEMOGLOBIN 25.8 pg (27.0-33.0); MEAN CORPUSCULAR HGB CONC 31.2 g/dL (32.0-36.0); MEAN CORPUSCULAR VOLUME 82.8 fL (79-99); MONOCYTES % (AUTO) 7.4 % (3.0-13.0); NUCLEATED RED BLOOD CELLS 0.2 % (0.0-0.19); PLATELET COUNT (AUTO) 177 K/uL (130-400); RED BLOOD CELL COUNT(AUTO) 3.81 MIL/uL (4.00-5.50); RED CELL DISTRIBUTION WIDTH 20.3 % (11.0-15.5); WHITE BLOOD COUNT (AUTO) 13.9 K/uL (4.8-10.8)
[2018-06-09 05:50] LABS: INR 1.55 (0.85-1.15); PARTIAL THROMBOPLASTIN TIME 47.1 SEC (26.3-35.5); PROTHROMBIN TIME 16.1 SEC (9.6-11.6)
[2018-06-09 06:05] LABS: CREATININE 3.9 mg/dL (0.5-1.5); THYROID STIMULATING HORMONE 0.97 uIU/mL (0.36-3.74)
[2018-06-09] MEDS: RANOLAZINE 500 MG TAB.SR.12H PO SCH ×2 (08:42→20:48)
[2018-06-09] MEDS: SEVELAMER HCL 800 MG TABLET PO SCH ×3 (08:43→16:53)
[2018-06-09] MEDS: SENNOSIDES 8.6 MG TABLET PO SCH (08:43)
[2018-06-09] MEDS: MIDODRINE HCL 5 MG TABLET PO SCH ×3 (08:43→20:48)
[2018-06-09] MEDS: ASPIRIN 81MG TAB.CHEW PO SCH (08:43)
[2018-06-09] MEDS: CITALOPRAM 20 MG TABLET PO SCH (08:43)
[2018-06-09] MEDS: CLOPIDOGREL BISULFATE 75 MG TAB PO SCH (08:44)
[2018-06-09] MEDS: HEPARIN SODIUM 5000UNIT/ML 1ML VIAL SQ SCH ×2 (08:45→21:03)
[2018-06-09] MEDS: PANTOPRAZOLE SODIUM 40 MG TABLET.DR PO SCH (08:48)
[2018-06-09] MEDS: DOCUSATE SODIUM 100 MG CAP PO SCH ×3 (08:49→20:47)
[2018-06-09] MEDS: DOPAMINE 800MG/D5 250ML 250 ML IV PRN ×2 (08:49→22:15)
[2018-06-09] MEDS ORDERED: LACTULOSE 20 GM/30 ML UDCUP PO PRN (13:30)
[2018-06-09] MEDS ORDERED: LIDOCAINE HCL 1% 20 ML VIAL ONE (14:13)
[2018-06-09] MEDS: ATORVASTATIN CALCIUM 20 MG TABLET PO SCH (20:48)
[2018-06-10] VITALS (26 sets, daily range): BP systolic 74–137; BP diastolic 40–76
--- NOTE | 2018-06-10 00:11 | NUR ---
Respiratory therapist earlier offered to change from 100% non rebreather mask. Offered several options. Patient refused. States she feels comfortable. Daughter Lo at bedside.
[2018-06-10 04:56] LABS: BASOPHILS % (AUTO) 0.9 % (0.0-5.0); EOSINOPHILS % (AUTO) 0.8 % (0.0-8.0); HEMATOCRIT 28.8 % (36-48); LYMPHOCYTES % (AUTO) 9.7 % (21.0-51.0); MEAN CORPUSCULAR HEMOGLOBIN 26.5 pg (27.0-33.0); MEAN CORPUSCULAR HGB CONC 32.2 g/dL (32.0-36.0); MEAN CORPUSCULAR VOLUME 82.3 fL (79-99); MONOCYTES % (AUTO) 7.8 % (3.0-13.0); NEUTROPHILS % (AUTO) 80.8 % (40.0-77.0); NUCLEATED RED BLOOD CELLS 0.1 % (0.0-0.19); PLATELET COUNT (AUTO) 152 K/uL (130-400); RED CELL DISTRIBUTION WIDTH 19.7 % (11.0-15.5); WHITE BLOOD COUNT (AUTO) 9.5 K/uL (4.8-10.8)
[2018-06-10 05:12] LABS: CREATININE 4.5 mg/dL (0.5-1.5); MAGNESIUM 1.8 mg/dL (1.80-2.40); PHOSPHORUS 4.6 mg/dL (2.5-4.9); POTASSIUM 3.9 mmol/L (3.5-5.1)
[2018-06-10] MEDS: EPINEPHRINE 2 MG in SODIUM CHLORIDE 0.9% 250 ML IV PRN ×2 (06:52→18:20)
[2018-06-10] MEDS: SODIUM CHLORIDE 0.9% 10 ML VIAL IVP SCH ×3 (07:15→21:38)
[2018-06-10] MEDS: INSULIN HUMULIN R 100 UNIT/ML 3ML SQ SCH ×4 (07:50→21:00)
[2018-06-10] MEDS ORDERED: BISACODYL 10 MG SUPP.RECT RC SCH (08:00)
[2018-06-10] MEDS: PANTOPRAZOLE SODIUM 40 MG TABLET.DR PO SCH (08:40)
[2018-06-10] MEDS: CLOPIDOGREL BISULFATE 75 MG TAB PO SCH (08:40)
[2018-06-10] MEDS: MIDODRINE HCL 5 MG TABLET PO SCH ×3 (08:40→21:28)
[2018-06-10] MEDS: SENNOSIDES 8.6 MG TABLET PO SCH (08:40)
[2018-06-10] MEDS: DOCUSATE SODIUM 100 MG CAP PO SCH ×3 (08:40→21:28)
[2018-06-10] MEDS: RANOLAZINE 500 MG TAB.SR.12H PO SCH ×2 (08:40→21:27)
[2018-06-10] MEDS: ASPIRIN 81MG TAB.CHEW PO SCH (08:40)
[2018-06-10] MEDS: CITALOPRAM 20 MG TABLET PO SCH (08:40)
[2018-06-10] MEDS: SEVELAMER HCL 800 MG TABLET PO SCH ×3 (08:40→16:21)
[2018-06-10] MEDS: HEPARIN SODIUM 5000UNIT/ML 1ML VIAL SQ SCH ×2 (09:00→21:37)
[2018-06-10] MEDS ORDERED: LIDOCAINE HCL 1% 20 ML VIAL ONE (11:55)
[2018-06-10] MEDS: DOPAMINE 800MG/D5 250ML 250 ML IV PRN (16:41)
--- NOTE | 2018-06-10 17:56 | NUR ---
RT THORACENTESIS DRSG DRY AND INTACT W/O SIGNS OF AIR LEAK OR SQ EMPHYSEMA - RESTING COMFORTABLY W/O RESP DISTRESS.
[2018-06-10] MEDS: ATORVASTATIN CALCIUM 20 MG TABLET PO SCH (21:28)
[2018-06-11] VITALS (24 sets, daily range): BP systolic 110–140; BP diastolic 56–84
[2018-06-11] MEDS: SODIUM CHLORIDE 0.9% 10 ML VIAL IVP SCH ×3 (04:54→23:57)
[2018-06-11] MEDS: INSULIN HUMULIN R 100 UNIT/ML 3ML SQ SCH ×4 (04:55→21:27)
[2018-06-11 05:44] LABS: MEAN CORPUSCULAR HEMOGLOBIN 25.9 pg (27.0-33.0); MEAN CORPUSCULAR HGB CONC 31.3 g/dL (32.0-36.0); MEAN CORPUSCULAR VOLUME 82.7 fL (79-99); NUCLEATED RED BLOOD CELLS 0.3 % (0.0-0.19); PLATELET COUNT (AUTO) 155 K/uL (130-400); RED BLOOD CELL COUNT(AUTO) 3.62 MIL/uL (4.00-5.50); RED CELL DISTRIBUTION WIDTH 21.6 % (11.0-15.5); WHITE BLOOD COUNT (AUTO) 8.7 K/uL (4.8-10.8)
[2018-06-11 05:56] LABS: ALBUMIN 2.7 g/dL (3.5-5.0); BILIRUBIN,TOTAL 1.8 mg/dL (0.2-1.0); CREATININE 5.2 mg/dL (0.5-1.5); POTASSIUM 4.3 mmol/L (3.5-5.1); TOTAL PROTEIN, SERUM 5.8 g/dL (6.0-8.3)
[2018-06-11] MEDS: PANTOPRAZOLE SODIUM 40 MG TABLET.DR PO SCH (08:08)
[2018-06-11] MEDS: ASPIRIN 81MG TAB.CHEW PO SCH (08:08)
[2018-06-11] MEDS: CITALOPRAM 20 MG TABLET PO SCH (08:08)
[2018-06-11] MEDS: CLOPIDOGREL BISULFATE 75 MG TAB PO SCH (08:08)
[2018-06-11] MEDS: RANOLAZINE 500 MG TAB.SR.12H PO SCH ×2 (08:08→21:15)
[2018-06-11] MEDS: SENNOSIDES 8.6 MG TABLET PO SCH (08:08)
[2018-06-11] MEDS: SEVELAMER HCL 800 MG TABLET PO SCH ×3 (08:08→17:00)
[2018-06-11] MEDS: MIDODRINE HCL 5 MG TABLET PO SCH ×3 (08:09→21:17)
[2018-06-11] MEDS: DOCUSATE SODIUM 100 MG CAP PO SCH ×3 (08:15→21:17)
[2018-06-11] MEDS: HEPARIN SODIUM 5000UNIT/ML 1ML VIAL SQ SCH ×2 (08:24→21:26)
[2018-06-11] MEDS: HEPARIN SODIUM 5000UNIT/ML 1ML VIAL IJ PRN (08:24)
[2018-06-11] MEDS: DOPAMINE 800MG/D5 250ML 250 ML IV PRN (08:37)
--- NOTE | 2018-06-11 09:10 | NUR ---
SOB WHEN TURNED TO LEFT SIDE-REQUEST BIPAP. BIPAP APPLIED.
--- NOTE | 2018-06-11 09:30 | NUR ---
PT ANXIOUS WHILE ON DIALYSIS
--- NOTE | 2018-06-11 09:40 | NUR ---
PT DAUGHTER CALLED TO ARRANGE A MEETING WITH DR FAJARDO TODAY- SHE WILL CALL ME BACK
--- NOTE | 2018-06-11 11:29 | NUR ---
PT LESS ANXIOUS AND LESS SOB. BIPAP REMOVED AND NASAL CANNULA REAPPLIED
--- NOTE | 2018-06-11 12:20 | NUR ---
Nutrition f/u: Pt continues on BIPAP, refusing to eat. As per pt's nurse, will attempt to keep pt comfortable and requesting nutrition supplement. Pt to receive Nepro TID with meals, nursing staff to assist with intake. [facility] 06/08. Alb 2.7. Recommendations: Nutrition supplementation TID with meals. Consult RD as nutrition concerns arise. Addendum: 06/11/18 at [address] Amended: Links added.
[2018-06-11] MEDS: EPINEPHRINE 2 MG in SODIUM CHLORIDE 0.9% 250 ML IV PRN (17:39)
--- NOTE | 2018-06-11 17:41 | NUR ---
DR FAJARDO Sw and nurses Kamini & Josi present when Dr Fajardo met with pt, and daughters. Dr Fajardo talked to pt who was alert, oriented and voiced understanding of information provided by care team and Dr Fajardo. 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 Pt's goal is that she is able to come off medication and tolerate dialysis to go home. Dr Fajardo answered all questions asked by family.
--- NOTE | 2018-06-11 17:48 | NUR ---
DR FAJARDO HAS JUST FINISHED HIS CONFERENCE WITH FAMILY AND PATIENT- TO CONTINUE SAME FOR NOW AND NOTIFY HIM AGAIN IF THEY DECIDE TO GO WITH PALLIATIVE CARE. PT GETTING A BED BATH PER REQUEST- BECAME SOB AND I APPLIED BIPAP FOR NOW
--- NOTE | 2018-06-11 18:21 | NUR ---
BACK TO NASAL CANNULA PER PT REQUEST
--- NOTE | 2018-06-11 18:31 | NUR ---
PT ONCE AGAIN SOB AND ANXIOUS- I HAVE REAPPLIED BIPAP THERAPY FOR NOW AND HAVE LIMITED VISITORS
--- NOTE | 2018-06-11 19:11 | NUR ---
HAND OFF REPORT GIVEN TO EDGARDO GOVEA
[2018-06-11] MEDS: ATORVASTATIN CALCIUM 20 MG TABLET PO SCH (21:17)
[2018-06-12] VITALS (24 sets, daily range): BP systolic 93–144; BP diastolic 47–92
--- NOTE | 2018-06-12 00:07 | NUR ---
BIPAP PATIENT ANXIOUS REQUESTED TO HAVE BIPAP REMOVED. REMOVED PER REQUEST.
[2018-06-12] MEDS: DOPAMINE 800MG/D5 250ML 250 ML IV PRN ×2 (00:58→16:19)
--- NOTE | 2018-06-12 01:47 | NUR ---
BIPAP PATIENT REMAINS ANXIOUS AND UNABLE TO REST. SPOUSE AT THE BEDSIDE. REQUESTED BIPAP BE REAPPLIED. BIPAP REAPPLIED
[2018-06-12 04:27] LABS: HEMATOCRIT 29.5 % (36-48); MEAN CORPUSCULAR HEMOGLOBIN 26.4 pg (27.0-33.0); MEAN CORPUSCULAR HGB CONC 32.2 g/dL (32.0-36.0); NUCLEATED RED BLOOD CELLS 0.1 % (0.0-0.19); PLATELET COUNT (AUTO) 124 K/uL (130-400); RED BLOOD CELL COUNT(AUTO) 3.59 MIL/uL (4.00-5.50); WHITE BLOOD COUNT (AUTO) 7.6 K/uL (4.8-10.8)
[2018-06-12 04:47] LABS: ALBUMIN 2.5 g/dL (3.5-5.0); BILIRUBIN,DIRECT 1.2 mg/dL (0.0-0.3); CREATININE 3.9 mg/dL (0.5-1.5); POTASSIUM 4.1 mmol/L (3.5-5.1); TOTAL PROTEIN, SERUM 5.7 g/dL (6.0-8.3)
[2018-06-12] MEDS: INSULIN HUMULIN R 100 UNIT/ML 3ML SQ SCH ×4 (06:27→21:15)
[2018-06-12] MEDS: PANTOPRAZOLE SODIUM 40 MG TABLET.DR PO SCH (06:31)
[2018-06-12] MEDS: SODIUM CHLORIDE 0.9% 10 ML VIAL IVP SCH ×3 (06:31→23:20)
--- NOTE | 2018-06-12 07:39 | NUR ---
PT NOT TOLERATING BEING OFF BIPAP-RESTLESS.
[2018-06-12] MEDS: SEVELAMER HCL 800 MG TABLET PO SCH (08:00)
[2018-06-12] MEDS: CITALOPRAM 20 MG TABLET PO SCH (08:37)
[2018-06-12] MEDS: CLOPIDOGREL BISULFATE 75 MG TAB PO SCH (08:39)
[2018-06-12] MEDS: MIDODRINE HCL 5 MG TABLET PO SCH ×3 (08:39→21:10)
[2018-06-12] MEDS: ASPIRIN 81MG TAB.CHEW PO SCH (08:40)
[2018-06-12] MEDS: RANOLAZINE 500 MG TAB.SR.12H PO SCH ×2 (08:40→21:11)
[2018-06-12] MEDS: SENNOSIDES 8.6 MG TABLET PO SCH (08:43)
[2018-06-12] MEDS: DOCUSATE SODIUM 100 MG CAP PO SCH ×3 (08:43→21:10)
[2018-06-12] MEDS: HEPARIN SODIUM 5000UNIT/ML 1ML VIAL SQ SCH ×2 (08:45→21:16)
--- NOTE | 2018-06-12 08:52 | NUR ---
HIGH RISK FOR ASPIRATION- PT UNABLE TO TAKE ALL PO MEDS- BEGAN TO CHOKE AND COUGH WITH PILLS AND WATER GIVEN.
--- NOTE | 2018-06-12 09:00 | NUR ---
PT NOW WANTS BIPAP OFF AGAIN. PLACED BACK ON NASAL CANNULA
--- NOTE | 2018-06-12 10:15 | NUR ---
BACK ON BIPAP PER HER REQUEST
--- NOTE | 2018-06-12 11:17 | NUR ---
DR ORO AND DR AN MADE ROUNDS- NO NEW ORDERS
--- NOTE | 2018-06-12 11:30 | NUR ---
DR MCCRARY MADE ROUNDS- EXPLAINED PATIENT RESTLESS BEHAVIOR AND DIFFICULTY SWALLOWING LARGE PILLS- ORDERS RECEIVED. NO NEW MEDS
--- NOTE | 2018-06-12 12:08 | NUR ---
f/u visit Daughter at bedside, pt restless on Bipap. Daughter states pt wants mask off, then on, hasn't slept at all. Daughter states they have asked family/visitors to stay away today so pt can rest.
--- NOTE | 2018-06-12 12:12 | NUR ---
PT TAKEN OFF BIPAP FOR MEAL-NASAL CANNULA 5L
--- NOTE | 2018-06-12 13:15 | NUR ---
BACK TO BIPAP
--- NOTE | 2018-06-12 16:00 | NUR ---
PT RESTED FOR 3 HRS-RESTED. NOW PLACED BACK ON NASAL CANNULA IN ANTICIPATION OF MEAL AND SHE WANTED TO DRINK SOME WATER
[2018-06-12] MEDS: EPINEPHRINE 2 MG in SODIUM CHLORIDE 0.9% 250 ML IV PRN (16:29)
--- NOTE | 2018-06-12 17:15 | NUR ---
PT NOW TIRED ONCE AGAIN AND REQUESTED BIPAP TO BE REAPPLIED. SHE TOOK HER SCHEDULED MEDS WITH OUT ANY DIFFICULTY. INTERACTED WITH VISITORS . ATE A SMALL PORTION OF HER MEAL .
--- NOTE | 2018-06-12 19:20 | NUR ---
HAND OFF REPORT GIVEN TO KAITLIN GOVEA
[2018-06-12] MEDS: ATORVASTATIN CALCIUM 20 MG TABLET PO SCH (21:11)
[2018-06-13] VITALS (30 sets, daily range): BP systolic 92–140; BP diastolic 43–97
[2018-06-13 04:03] LABS: CREATININE 4.7 mg/dL (0.5-1.5); PHOSPHORUS 5.7 mg/dL (2.5-4.9); POTASSIUM 4.8 mmol/L (3.5-5.1)
[2018-06-13] MEDS: SODIUM CHLORIDE 0.9% 10 ML VIAL IVP SCH ×3 (04:12→11:52)
[2018-06-13 04:38] LABS: MEAN CORPUSCULAR VOLUME 82.9 fL (79-99); RED BLOOD CELL COUNT(AUTO) 3.46 MIL/uL (4.00-5.50); WHITE BLOOD COUNT (AUTO) 8.3 K/uL (4.8-10.8)
[2018-06-13 04:41] LABS: HEMATOCRIT 28.6 % (36-48); MEAN CORPUSCULAR HGB CONC 31.4 g/dL (32.0-36.0); NUCLEATED RED BLOOD CELLS 0.1 % (0.0-0.19); PLATELET COUNT (AUTO) 140 K/uL (130-400); RED CELL DISTRIBUTION WIDTH 22.3 % (11.0-15.5)
[2018-06-13] MEDS ORDERED: ALPRAZOLAM 0.25 MG TABLET PO PRN (06:15)
[2018-06-13] MEDS: PANTOPRAZOLE SODIUM 40 MG TABLET.DR PO SCH (06:41)
[2018-06-13] MEDS: INSULIN HUMULIN R 100 UNIT/ML 3ML SQ SCH ×4 (06:48→20:34)
[2018-06-13] MEDS: DOPAMINE 800MG/D5 250ML 250 ML IV PRN ×2 (06:59→22:55)
[2018-06-13] MEDS: EPINEPHRINE 2 MG in SODIUM CHLORIDE 0.9% 250 ML IV PRN ×2 (07:02→18:20)
--- NOTE | 2018-06-13 07:26 | NUR ---
here and rounded,notified regarding pt episode of wide QRS tachycardia lastnight,and pt is on and off anxious,remained on Bipap .Bedside report given to incoming NOD using SBAR all questions answered.Pt. remained on Dopamine and epinephrine drip.
[2018-06-13] MEDS: SENNOSIDES 8.6 MG TABLET PO SCH (10:08)
[2018-06-13] MEDS: RANOLAZINE 500 MG TAB.SR.12H PO SCH ×2 (10:08→20:37)
[2018-06-13] MEDS: CLOPIDOGREL BISULFATE 75 MG TAB PO SCH (10:08)
[2018-06-13] MEDS: MIDODRINE HCL 5 MG TABLET PO SCH ×3 (10:08→20:38)
[2018-06-13] MEDS: ASPIRIN 81MG TAB.CHEW PO SCH (10:08)
[2018-06-13] MEDS: CITALOPRAM 20 MG TABLET PO SCH (10:08)
[2018-06-13] MEDS: DOCUSATE SODIUM 100 MG CAP PO SCH ×3 (10:08→20:38)
[2018-06-13] MEDS: HEPARIN SODIUM 5000UNIT/ML 1ML VIAL SQ SCH ×2 (10:10→20:48)
--- NOTE | 2018-06-13 11:30 | NUR ---
PT COMPLETED HS, TOLERATED WELL. PLACED ON NC AT 4 L. TOLERATING WELL. CONTINUES WITH INTERMITTENT CONFUSION. REORIENTED TO SITUATION. FAMILY AT BEDSIDE.
[2018-06-13] MEDS ORDERED: LIDOCAINE HCL 1% 20 ML VIAL ONE (15:21)
--- NOTE | 2018-06-13 19:11 | NUR ---
HAND OFF REPORT GIVEN TO EDGARDO GOVEA
[2018-06-13] MEDS: ATORVASTATIN CALCIUM 20 MG TABLET PO SCH (20:37)
[2018-06-14] VITALS (32 sets, daily range): BP systolic 88–130; BP diastolic 30–82
[2018-06-14 04:22] LABS: HEMATOCRIT 29.1 % (36-48); MEAN CORPUSCULAR HEMOGLOBIN 26.1 pg (27.0-33.0); MEAN CORPUSCULAR HGB CONC 31.5 g/dL (32.0-36.0); MEAN CORPUSCULAR VOLUME 82.8 fL (79-99); PLATELET COUNT (AUTO) 147 K/uL (130-400); RED BLOOD CELL COUNT(AUTO) 3.51 MIL/uL (4.00-5.50); RED CELL DISTRIBUTION WIDTH 22.3 % (11.0-15.5); WHITE BLOOD COUNT (AUTO) 7.4 K/uL (4.8-10.8)
[2018-06-14 04:28] LABS: CREATININE 3.9 mg/dL (0.5-1.5); POTASSIUM 4.5 mmol/L (3.5-5.1)
[2018-06-14 04:35] LABS: INR 1.2 (0.85-1.15); PROTHROMBIN TIME 12.6 SEC (9.6-11.6)
[2018-06-14] MEDS: PANTOPRAZOLE SODIUM 40 MG TABLET.DR PO SCH (06:35)
[2018-06-14] MEDS: SODIUM CHLORIDE 0.9% 10 ML VIAL IVP SCH ×3 (06:35→23:15)
[2018-06-14] MEDS: INSULIN HUMULIN R 100 UNIT/ML 3ML SQ SCH ×3 (06:37→16:30)
[2018-06-14] MEDS: EPINEPHRINE 2 MG in SODIUM CHLORIDE 0.9% 250 ML IV PRN ×2 (07:25→19:47)
[2018-06-14] MEDS: ASPIRIN 81MG TAB.CHEW PO SCH ×2 (08:57→09:00)
[2018-06-14] MEDS: DOCUSATE SODIUM 100 MG CAP PO SCH ×4 (08:57→21:00)
[2018-06-14] MEDS: SENNOSIDES 8.6 MG TABLET PO SCH ×2 (08:57→09:00)
[2018-06-14] MEDS: CLOPIDOGREL BISULFATE 75 MG TAB PO SCH ×2 (08:57→09:00)
[2018-06-14] MEDS: MIDODRINE HCL 5 MG TABLET PO SCH ×4 (08:57→21:00)
[2018-06-14] MEDS: CITALOPRAM 20 MG TABLET PO SCH ×2 (08:57→09:00)
[2018-06-14] MEDS: RANOLAZINE 500 MG TAB.SR.12H PO SCH ×3 (08:57→21:00)
[2018-06-14 09:37] LABS: ABG BASE EXCESS -0.2 mmol/L (-2.0-3.0); ABG HCO3 24.1 mmol/L (21.0-28.0); ABG OXYGEN SATURATION 88.9 % (95.0-99.0); ABG PCO2 38 mmHg (32-45)
[2018-06-14] MEDS: HEPARIN SODIUM 5000UNIT/ML 1ML VIAL SQ SCH ×2 (09:41→21:34)
--- NOTE | 2018-06-14 13:52 | NUR ---
CORINNE PETTIT SPOKE TO MD LAKHANI WITH SENDING REFERRAL TO [facility]. SPOKE TO NURSE SAID PATIENT NOT DOING WELL. OTHER CONSULTS HAVE COME IN AND TOLD FAMILY THAT EVEN WITH DRIPS PATIENT NOT IMPROVING. AT THIS TIME PATIENT APPEARS SEDATED. Addendum: 06/14/18 at 1353 by AMANDA WARE RN CM Amended: Links added.
--- NOTE | 2018-06-14 17:26 | NUR ---
Nutrition f/u: At time of RD visit, JEFERSON Munoz reports no po intake. Pt not waking up, troubled breathing, on BIPAP. RN requesting TF recommendations from JUANA. Recommendations: Nepro @ 55ml/hr, 120ml flush Q6H. RD to continue monitoring pt's nutritional status for continued intervention. Addendum: 06/14/18 at [address] Amended: Links added.
--- NOTE | 2018-06-14 18:00 | NUR ---
DISCUSSED NGT WITH DAUGHTER DUE TO PATIENT NOT WAKING UP TO EAT OR TAKE MEDS DAUGHTER CONTINUES TO ATTEMPT TO WAKE UP PATIENT TO GIVE WATER/FOOD/MEDS HOWEVER PATIENT DOES NOT REMAIN AWAKE AND ALERT. SHE OPENS EYES, THEN CLOSES AND GOES BACK TO SLEEP. BIPAP MASK REMOVED AND WATER GLASS W/ STRAW PLACED IN PATIENT'S MOUTH HOWEVER PATIENT WOULD NOT DRINK AND NODS "NO" WHEN ASKED IF SHE WANTS WATER OR SOUP. INFORMED DAUGHTER THAT THE NEXT OPTION WOULD BE TO PLACE A NGT FOR TUBE FEEDING AND MEDICATIONS. DAUGHTER WANTS TO WAIT AND SEE IF SHE WILL WAKE UP WITH HEMODIALYSIS IN THE MORNING BEFORE PLACING THE NGT.
[2018-06-14] MEDS: ATORVASTATIN CALCIUM 20 MG TABLET PO SCH (21:00)
[2018-06-15] VITALS (24 sets, daily range): BP systolic 94–131; BP diastolic 45–95
--- NOTE | 2018-06-15 05:00 | NUR ---
Complete bath done. Abdominal dressing changed using strict sterile technique. [facility] Bed in therapy mode. Dr Maldonado here to see patient. Hydralazine given at 0400 for elevated BP. Addendum: 06/15/18 at 0653 by YANETH FUENTES RN RN please disregard above note. wrong chart.
[2018-06-15 05:30] LABS: HEMATOCRIT 29.5 % (36-48); MEAN CORPUSCULAR HEMOGLOBIN 25.5 pg (27.0-33.0); MEAN CORPUSCULAR HGB CONC 30.7 g/dL (32.0-36.0); MEAN CORPUSCULAR VOLUME 82.9 fL (79-99); NUCLEATED RED BLOOD CELLS 0.1 % (0.0-0.19); PLATELET COUNT (AUTO) 189 K/uL (130-400); RED BLOOD CELL COUNT(AUTO) 3.56 MIL/uL (4.00-5.50); RED CELL DISTRIBUTION WIDTH 21.9 % (11.0-15.5); WHITE BLOOD COUNT (AUTO) 7.3 K/uL (4.8-10.8)
[2018-06-15 05:43] LABS: CREATININE 4.9 mg/dL (0.5-1.5); POTASSIUM 4.7 mmol/L (3.5-5.1)
[2018-06-15] MEDS: INSULIN HUMULIN R 100 UNIT/ML 3ML SQ SCH ×5 (06:00→21:00)
--- NOTE | 2018-06-15 06:43 | NUR ---
Lopressor 2.5 mg given earlier for heartrate fluctuating between 130's and 140's. Addendum: 06/15/18 at 0652 by YANETH FUENTES RN RN please disregard above note. wrong chart
[2018-06-15] MEDS: SODIUM CHLORIDE 0.9% 10 ML VIAL IVP SCH ×3 (07:15→23:15)
--- NOTE | 2018-06-15 08:18 | NUR ---
ROUNDS MADAI Wynne WITH DR. BERMUDEZ IN TO SEE PATIENT. I UPDATED ON STATUS, NO NEW ORDERS RECEIVED.
[2018-06-15] MEDS: DOPAMINE 800MG/D5 250ML 250 ML IV PRN ×2 (08:20→20:16)
--- NOTE | 2018-06-15 09:00 | NUR ---
MD ROUNDS DR. BERMUDEZ IN TO SEE PATIENT. MD UPDATED ON STATUS.
[2018-06-15] MEDS: CITALOPRAM 20 MG TABLET PO SCH (09:11)
[2018-06-15] MEDS: CLOPIDOGREL BISULFATE 75 MG TAB PO SCH (09:11)
[2018-06-15] MEDS: SENNOSIDES 8.6 MG TABLET PO SCH (09:12)
[2018-06-15] MEDS: RANOLAZINE 500 MG TAB.SR.12H PO SCH ×2 (09:12→21:02)
[2018-06-15] MEDS: DOCUSATE SODIUM 100 MG CAP PO SCH ×3 (09:12→21:02)
[2018-06-15] MEDS: MIDODRINE HCL 5 MG TABLET PO SCH ×3 (09:12→21:03)
[2018-06-15] MEDS: ASPIRIN 81MG TAB.CHEW PO SCH (09:12)
[2018-06-15] MEDS: PANTOPRAZOLE SODIUM 40 MG TABLET.DR PO SCH (09:16)
[2018-06-15] MEDS: HEPARIN SODIUM 5000UNIT/ML 1ML VIAL SQ SCH ×2 (09:17→21:05)
[2018-06-15] MEDS: EPINEPHRINE 2 MG in SODIUM CHLORIDE 0.9% 250 ML IV PRN ×2 (10:27→23:06)
[2018-06-15] MEDS: HEPARIN SODIUM 5000UNIT/ML 1ML VIAL IJ PRN (11:43)
--- NOTE | 2018-06-15 13:25 | NUR ---
MD ROUNDS DR. MCCRARY IN TO SEE PATIENT. NEW ORDERS RECEIVED TO BE CARRIED OUT.
[2018-06-15] MEDS: ONDANSETRON HCL 4 MG/2 ML VIAL IVP PRN (15:11)
--- NOTE | 2018-06-15 15:16 | NUR ---
PATIENT HAS COMPLETED DIALYSIS TREATMENT, REFER TO FLOW SHEET.
--- NOTE | 2018-06-15 16:02 | NUR ---
MD ROUNDS DR. AN IN TO SEE PATIENT.
--- NOTE | 2018-06-15 16:12 | NUR ---
DC PLAN SPOKE TO PATIENT AND FAMILY REGARDING PLAN OF CARE. OKAY FROM PRIMARY TO OFFER SOLARA. PATIENT ON MULTIPLE DRIPS AND ON DIALYSIS. CARDIOGENIC SHOCK WITH RESPIRATORY FAILURE. [employer] SIGNED INFO SENT INCLUDING INQUIRY SHEET. LET EDA KNOW WILL COME AND EVAL PATIENT. TOM WILL CONTINUE TO FOLLOW. Addendum: 06/15/18 at 1614 by AMANDA WARE RN CM Amended: Links added.
[2018-06-15] MEDS: ATORVASTATIN CALCIUM 20 MG TABLET PO SCH (21:02)
[2018-06-16] VITALS (21 sets, daily range): BP systolic 97–124; BP diastolic 56–95
[2018-06-16 03:37] LABS: BASOPHILS % (AUTO) 0.4 % (0.0-5.0); EOSINOPHILS % (AUTO) 0.2 % (0.0-8.0); HEMATOCRIT 29.7 % (36-48); LYMPHOCYTES % (AUTO) 9.9 % (21.0-51.0); MEAN CORPUSCULAR HEMOGLOBIN 26.2 pg (27.0-33.0); MEAN CORPUSCULAR HGB CONC 31.4 g/dL (32.0-36.0); MEAN CORPUSCULAR VOLUME 83.5 fL (79-99); MONOCYTES % (AUTO) 10.4 % (3.0-13.0); NEUTROPHILS % (AUTO) 79.1 % (40.0-77.0); PLATELET COUNT (AUTO) 206 K/uL (130-400); RED BLOOD CELL COUNT(AUTO) 3.56 MIL/uL (4.00-5.50); RED CELL DISTRIBUTION WIDTH 22.6 % (11.0-15.5); WHITE BLOOD COUNT (AUTO) 7.5 K/uL (4.8-10.8)
[2018-06-16 03:49] LABS: ALBUMIN 2.5 g/dL (3.5-5.0); CREATININE 3.9 mg/dL (0.5-1.5); PHOSPHORUS 5.1 mg/dL (2.5-4.9); POTASSIUM 4.1 mmol/L (3.5-5.1)
[2018-06-16] MEDS: PANTOPRAZOLE SODIUM 40 MG TABLET.DR PO SCH (06:42)
[2018-06-16] MEDS: SODIUM CHLORIDE 0.9% 10 ML VIAL IVP SCH ×3 (06:45→23:30)
[2018-06-16] MEDS: INSULIN HUMULIN R 100 UNIT/ML 3ML SQ SCH ×4 (06:53→23:11)
--- NOTE | 2018-06-16 07:00 | NUR ---
PT RECEIVED IN BED, AAOX4, YET FORGETFUL AND EASILY CONFUSED. PT CONT ON BIPAP WITH SAME SETTINGS. CONT WITH DOPAMINE 10 MCG AND EPINEPHRINE 0.03MCG VIA LEFT IJ CENTRAL LINE. NO CHANGE IN CONDITION. POC DISCUSSED WITH PATIENT AND HER . WILL CONT TO MONITOR CLOSELY. TELE WITH ST 103 FREQUENT PVC.
[2018-06-16] MEDS: ONDANSETRON HCL 4 MG/2 ML VIAL IVP PRN ×2 (08:06→15:25)
[2018-06-16] MEDS: MIDODRINE HCL 5 MG TABLET PO SCH ×3 (08:08→20:57)
[2018-06-16] MEDS: ASPIRIN 81MG TAB.CHEW PO SCH (08:09)
[2018-06-16] MEDS: RANOLAZINE 500 MG TAB.SR.12H PO SCH ×2 (08:09→20:57)
[2018-06-16] MEDS: DOCUSATE SODIUM 100 MG CAP PO SCH ×3 (08:09→20:57)
[2018-06-16] MEDS: CITALOPRAM 20 MG TABLET PO SCH (08:09)
[2018-06-16] MEDS: SENNOSIDES 8.6 MG TABLET PO SCH (08:09)
[2018-06-16] MEDS: CLOPIDOGREL BISULFATE 75 MG TAB PO SCH (08:09)
[2018-06-16 08:47] LABS: ABG BASE EXCESS -4.5 mmol/L (-2.0-3.0); ABG HCO3 19.8 mmol/L (21.0-28.0); ABG PCO2 34 mmHg (32-45)
--- NOTE | 2018-06-16 08:50 | NUR ---
I2 assessment: Pt on Bipap w/35 O2 Addendum: 06/16/18 at 1025 by MELY RODRIGUEZ RT Amended: Links added.
[2018-06-16] MEDS: HEPARIN SODIUM 5000UNIT/ML 1ML VIAL SQ SCH ×2 (09:29→20:59)
[2018-06-16] MEDS: EPINEPHRINE 2 MG in SODIUM CHLORIDE 0.9% 250 ML IV PRN (11:58)
[2018-06-16] MEDS: DOPAMINE 800MG/D5 250ML 250 ML IV PRN (12:00)
--- NOTE | 2018-06-16 12:00 | NUR ---
MD ROUNDS DR. AN IN TO SEE PATIENT. NEW ORDERS RECEIVED TO BE CARRIED OUT.
--- NOTE | 2018-06-16 12:30 | NUR ---
INFORMED DR. AN OF CT CHEST RESULTS. NO NEW ORDERS RECEIVED. Addendum: 06/16/18 at 1448 by MEAGAN LÓPEZ RN RN WRONG PATIENT
--- NOTE | 2018-06-16 14:09 | NUR ---
INFORMED DR. AN OF ABG RESULTS, ORDERS TO TITRATE O2 NEEDED. MELY LEWIS MADE AWARE OF NEW ORDERS.
[2018-06-16] MEDS: ATORVASTATIN CALCIUM 20 MG TABLET PO SCH (20:56)
[2018-06-17] VITALS (24 sets, daily range): BP systolic 95–132; BP diastolic 42–77
[2018-06-17] MEDS: EPINEPHRINE 2 MG in SODIUM CHLORIDE 0.9% 250 ML IV PRN ×2 (01:29→13:58)
[2018-06-17] MEDS: DOPAMINE 800MG/D5 250ML 250 ML IV PRN ×2 (04:01→17:47)
[2018-06-17 04:36] LABS: HEMATOCRIT 29.9 % (36-48); MEAN CORPUSCULAR HGB CONC 30.8 g/dL (32.0-36.0); MEAN CORPUSCULAR VOLUME 84.4 fL (79-99); NUCLEATED RED BLOOD CELLS 0.1 % (0.0-0.19); PLATELET COUNT (AUTO) 240 K/uL (130-400); RED BLOOD CELL COUNT(AUTO) 3.54 MIL/uL (4.00-5.50); RED CELL DISTRIBUTION WIDTH 22.7 % (11.0-15.5); WHITE BLOOD COUNT (AUTO) 8.8 K/uL (4.8-10.8)
[2018-06-17 05:12] LABS: ALBUMIN 2.5 g/dL (3.5-5.0); BILIRUBIN,TOTAL 1.8 mg/dL (0.2-1.0); CREATININE 4.7 mg/dL (0.5-1.5); MAGNESIUM 2.1 mg/dL (1.80-2.40); PHOSPHORUS 6.2 mg/dL (2.5-4.9); POTASSIUM 4.3 mmol/L (3.5-5.1); TOTAL PROTEIN, SERUM 5.9 g/dL (6.0-8.3)
[2018-06-17] MEDS: SODIUM CHLORIDE 0.9% 10 ML VIAL IVP SCH ×3 (07:15→23:41)
[2018-06-17] MEDS: INSULIN HUMULIN R 100 UNIT/ML 3ML SQ SCH ×4 (07:30→21:30)
--- NOTE | 2018-06-17 07:30 | NUR ---
ROUNDS DR. ELLER IN TO SEE PATIENT. INFORMED OF EVENTS FOR LAST NIGHT, 10 BEAT RUN OF VTACH. WILL CONT TO MONITOR.
[2018-06-17] MEDS: MIDODRINE HCL 5 MG TABLET PO SCH ×3 (08:25→21:26)
[2018-06-17] MEDS: ONDANSETRON HCL 4 MG/2 ML VIAL IVP PRN (08:25)
[2018-06-17] MEDS: PANTOPRAZOLE SODIUM 40 MG TABLET.DR PO SCH (08:25)
[2018-06-17] MEDS: ASPIRIN 81MG TAB.CHEW PO SCH (08:25)
[2018-06-17] MEDS: DOCUSATE SODIUM 100 MG CAP PO SCH ×3 (08:25→21:27)
[2018-06-17] MEDS: CITALOPRAM 20 MG TABLET PO SCH (08:26)
[2018-06-17] MEDS: SENNOSIDES 8.6 MG TABLET PO SCH (08:26)
[2018-06-17] MEDS: RANOLAZINE 500 MG TAB.SR.12H PO SCH ×2 (08:26→21:26)
[2018-06-17] MEDS: CLOPIDOGREL BISULFATE 75 MG TAB PO SCH (08:26)
[2018-06-17] MEDS: HEPARIN SODIUM 5000UNIT/ML 1ML VIAL SQ SCH ×2 (08:27→21:28)
--- NOTE | 2018-06-17 11:44 | NUR ---
RD Follow up note Patient remains with difficulty breathing. Patient family member and RN report poor PO intake due to difficulty breathing. RN to assist with feedings with nutritional supplement. Tube feeding recommendations previously placed, however patient refusal at this time as per RN. Patient LBM 06/10/18. Patient monitored labs: Na 134, Cl 96, BUN 43, Cr 4.7, GFR 10, Glu 170, Ca 8.2, P 6.2, T.Bili 1.8, AST 64, ALT 147, Alb 2.5. RD to continue to monitor. Please notify RD as nutritional concerns arise. Thank you. Addendum: 06/17/18 at [address] RD Amended: Links added.
--- NOTE | 2018-06-17 16:00 | NUR ---
MD ROUNDS DR. KELLY IN TO SEE PATIENT. NEW ORDERS RECEIVED TO BE CARRIED OUT.
[2018-06-17] MEDS ORDERED: MORPHINE SULFATE 2 MG/ML 1ML SYG IVP PRN (16:15)
--- NOTE | 2018-06-17 16:50 | NUR ---
MD ROUNDS DR. MCCRARY IN TO SEE PATIENT. UPDATED ON STATUS. NEW ORDERS RECEIVED FOR AM LABS.
[2018-06-17] MEDS: ATORVASTATIN CALCIUM 20 MG TABLET PO SCH (21:27)
[2018-06-18] VITALS (26 sets, daily range): BP systolic 91–138; BP diastolic 37–74
[2018-06-18 04:22] LABS: ABG BASE EXCESS -4.1 mmol/L (-2.0-3.0); ABG HCO3 20.4 mmol/L (21.0-28.0); ABG OXYGEN SATURATION 93.4 % (95.0-99.0); ABG PCO2 36 mmHg (32-45)
[2018-06-18] MEDS: INSULIN HUMULIN R 100 UNIT/ML 3ML SQ SCH ×4 (05:42→22:10)
[2018-06-18] MEDS: PANTOPRAZOLE SODIUM 40 MG TABLET.DR PO SCH (07:30)
--- NOTE | 2018-06-18 08:00 | NUR ---
Devon VILLANUEVA PA-C, IN ROOM SPEAKING WITH PT.'S DAUGHTER AT BEDSIDE RE:PLAN OF CARE AND ANSWERING QUESTIONS; DAUGHTER VERBALIZED UNDERSTANDING.
[2018-06-18] MEDS: DOPAMINE 800MG/D5 250ML 250 ML IV PRN ×2 (08:35→09:01)
--- NOTE | 2018-06-18 08:40 | NUR ---
FiO2 decreased to .30; Sats 97%. Respirations unlabored. Addendum: 06/18/18 at 0841 by MELY RODRIGUEZ RT Amended: Links added.
--- NOTE | 2018-06-18 08:43 | NUR ---
HD TO BE STARTED; HD NURSE AT BEDSIDE. DR. Shweta LÓPEZ IN ROOM WITH PT.
[2018-06-18] MEDS: MIDODRINE HCL 5 MG TABLET PO SCH ×3 (08:56→21:47)
[2018-06-18] MEDS: HEPARIN SODIUM 5000UNIT/ML 1ML VIAL SQ SCH ×2 (08:57→21:57)
[2018-06-18] MEDS: RANOLAZINE 500 MG TAB.SR.12H PO SCH ×2 (09:00→21:48)
[2018-06-18] MEDS: DOCUSATE SODIUM 100 MG CAP PO SCH ×4 (09:00→21:48)
[2018-06-18] MEDS: CLOPIDOGREL BISULFATE 75 MG TAB PO SCH (09:00)
[2018-06-18] MEDS: CITALOPRAM 20 MG TABLET PO SCH (09:00)
[2018-06-18] MEDS: ASPIRIN 81MG TAB.CHEW PO SCH (09:00)
[2018-06-18] MEDS: SENNOSIDES 8.6 MG TABLET PO SCH (09:00)
[2018-06-18] MEDS: SODIUM CHLORIDE 0.9% 10 ML VIAL IVP SCH ×3 (09:05→23:15)
[2018-06-18] MEDS: HEPARIN SODIUM 5000UNIT/ML 1ML VIAL IJ PRN (10:45)
--- NOTE | 2018-06-18 11:50 | NUR ---
HD COMPLETED. TOLERATED W/O C/O. CALL LIGHT WITHIN REACH.
--- NOTE | 2018-06-18 15:00 | NUR ---
DR. Roseanne VALIENTE IN ROOM SPEAKING WITH PT.'S DAUGHTER AT BEDSIDE RE:POSSIBLE BILATERAL THORACENTESIS TOMORROW; QUESTIONS ANSWERED BY DR. VALIENTE, DAUGHTER VERBALIZED UNDERSTANDING.
--- NOTE | 2018-06-18 17:20 | NUR ---
BIPAP REMOVED PER PT.'S REQUEST. APPLIED NRB. DAUGHTER AT BEDSIDE. PULSE OXIMETRY CONTINUES AT 100%. INSTRUCTED PT. AND DAUGHTER AT BEDSIDE TO CALL IF EXPERIENCED SOB OR ANY DISTRESS, VERBALIZED MUTUAL UNDERSTANDING. CALL LIGHT WITHIN REACH.
[2018-06-18] MEDS: ATORVASTATIN CALCIUM 20 MG TABLET PO SCH (21:47)
[2018-06-19] VITALS (8 sets, daily range): BP systolic 59–156; BP diastolic 31–68
[2018-06-19] MEDS: DOPAMINE 800MG/D5 250ML 250 ML IV PRN (00:57)
[2018-06-19 05:02] LABS: HEMATOCRIT 30.5 % (36-48); MEAN CORPUSCULAR HEMOGLOBIN 26.3 pg (27.0-33.0); MEAN CORPUSCULAR HGB CONC 31.4 g/dL (32.0-36.0); MEAN CORPUSCULAR VOLUME 83.9 fL (79-99); NUCLEATED RED BLOOD CELLS 0.2 % (0.0-0.19); PLATELET COUNT (AUTO) 241 K/uL (130-400); RED BLOOD CELL COUNT(AUTO) 3.63 MIL/uL (4.00-5.50); RED CELL DISTRIBUTION WIDTH 24.4 % (11.0-15.5); WHITE BLOOD COUNT (AUTO) 11.7 K/uL (4.8-10.8)
[2018-06-19 05:12] LABS: CREATININE 4.6 mg/dL (0.5-1.5); POTASSIUM 4.6 mmol/L (3.5-5.1)
[2018-06-19] MEDS: SODIUM CHLORIDE 0.9% 10 ML VIAL IVP SCH (06:03)
--- NOTE | 2018-06-19 06:22 | NUR ---
PRONOUNCEMENT SUMMONED TO PATIENT'S ROOM. SPOUSE AT BEDSIDE. PT. SUPINE IN BED. NO BREATH SOUNDS, HEART TONES OR BLOOD PRESSURE AUDIBLE ON AUSCULTATION. ASYSTOLE SHOWING ON FORM SETTER/DRIVER. PUPILS FIXED AND DILATED. TIME OF : 621
--- NOTE | 2018-06-19 07:36 | NUR ---
0600 at bedside. Patient became unresponsive, agonal respirations, went asystole. reiterated DNR wishes. Emotional support given. called his family in. 06 Patient pronounced by supervisor steffen house ROSA ISELA Jolley. [address] East. Informed pt . 06 Called [facility]. 0640 Call from Akua Colvin. Requested body be sent to [facility] [place]. [facility] ROSA ISELA Jolley and [facility] nurse David Garcia RN informed. 0715 Call from [place] with [facility] bank at [phone]. Requested call prior to releasing body to home. David informed. Family at bedside.
== END 2018-06-19 06:22 | disposition expired | DRG 720 ==
LOC: 2CH 12:15 → 2AH 06-02 15:08 → 2BH 06-03 14:32 → 2CH 06-10 16:11
PROVIDERS: ADMIT Internal Medicine; ATTEND Internal Medicine
PROC: 4A023N8 Measurement of Cardiac Sampling and Pressure, Bilateral, Percutaneous Approach (ICD-10-PCS; principal; 2018-06-01)
PROC: B2111ZZ Fluoroscopy of Multiple Coronary Arteries using Low Osmolar Contrast (ICD-10-PCS; 2018-06-01)
PROC: B2151ZZ Fluoroscopy of Left Heart using Low Osmolar Contrast (ICD-10-PCS; 2018-06-01)
PROC: B41F1ZZ Fluoroscopy of Right Lower Extremity Arteries using Low Osmolar Contrast (ICD-10-PCS; 2018-06-01)
PROC: 5A1D70Z Performance of Urinary Filtration, Intermittent, Less than 6 Hours Per Day (ICD-10-PCS; 2018-06-02)
PROC: 5A09357 Assistance with Respiratory Ventilation, Less than 24 Consecutive Hours, Continuous Positive Airway Pressure (ICD-10-PCS; 2018-06-03)
PROC: 5A1D70Z Performance of Urinary Filtration, Intermittent, Less than 6 Hours Per Day (ICD-10-PCS; 2018-06-04)
PROC: 5A09357 Assistance with Respiratory Ventilation, Less than 24 Consecutive Hours, Continuous Positive Airway Pressure (ICD-10-PCS; 2018-06-04)
PROC: 5A09357 Assistance with Respiratory Ventilation, Less than 24 Consecutive Hours, Continuous Positive Airway Pressure (ICD-10-PCS; 2018-06-05)
PROC: 5A1D70Z Performance of Urinary Filtration, Intermittent, Less than 6 Hours Per Day (ICD-10-PCS; 2018-06-06)
PROC: 5A12012 Performance of Cardiac Output, Single, Manual (ICD-10-PCS; 2018-06-06)
PROC: 5A09357 Assistance with Respiratory Ventilation, Less than 24 Consecutive Hours, Continuous Positive Airway Pressure (ICD-10-PCS; 2018-06-06)
PROC: 5A1D70Z Performance of Urinary Filtration, Intermittent, Less than 6 Hours Per Day (ICD-10-PCS; 2018-06-08)
PROC: 0W9B3ZZ Drainage of Left Pleural Cavity, Percutaneous Approach (ICD-10-PCS; 2018-06-08)
PROC: 0W9B3ZZ Drainage of Left Pleural Cavity, Percutaneous Approach (ICD-10-PCS; 2018-06-09)
PROC: 0W993ZZ Drainage of Right Pleural Cavity, Percutaneous Approach (ICD-10-PCS; 2018-06-10)
PROC: 5A1D70Z Performance of Urinary Filtration, Intermittent, Less than 6 Hours Per Day (ICD-10-PCS; 2018-06-11)
PROC: 5A09357 Assistance with Respiratory Ventilation, Less than 24 Consecutive Hours, Continuous Positive Airway Pressure (ICD-10-PCS; 2018-06-11)
PROC: 5A09357 Assistance with Respiratory Ventilation, Less than 24 Consecutive Hours, Continuous Positive Airway Pressure (ICD-10-PCS; 2018-06-12)
PROC: 5A1D70Z Performance of Urinary Filtration, Intermittent, Less than 6 Hours Per Day (ICD-10-PCS; 2018-06-13)
PROC: 5A09357 Assistance with Respiratory Ventilation, Less than 24 Consecutive Hours, Continuous Positive Airway Pressure (ICD-10-PCS; 2018-06-13)
PROC: 5A09357 Assistance with Respiratory Ventilation, Less than 24 Consecutive Hours, Continuous Positive Airway Pressure (ICD-10-PCS; 2018-06-14)
PROC: 5A1D70Z Performance of Urinary Filtration, Intermittent, Less than 6 Hours Per Day (ICD-10-PCS; 2018-06-15)
PROC: 5A09457 Assistance with Respiratory Ventilation, 24-96 Consecutive Hours, Continuous Positive Airway Pressure (ICD-10-PCS; 2018-06-15)
PROC: 5A1D70Z Performance of Urinary Filtration, Intermittent, Less than 6 Hours Per Day (ICD-10-PCS; 2018-06-18)
PROC: 5A09357 Assistance with Respiratory Ventilation, Less than 24 Consecutive Hours, Continuous Positive Airway Pressure (ICD-10-PCS; 2018-06-19)
DX: A41.9 Sepsis, unspecified organism (principal); I21.4 Non-ST elevation (NSTEMI) myocardial infarction; J96.01 Acute respiratory failure with hypoxia; K72.00 Acute and subacute hepatic failure without coma; G93.41 Metabolic encephalopathy; N17.9 Acute kidney failure, unspecified; N18.6 End stage renal disease; I47.2 Ventricular tachycardia; I27.20 Pulmonary hypertension, unspecified; I50.43 Acute on chronic combined systolic (congestive) and diastolic (congestive) heart failure; I46.9 Cardiac arrest, cause unspecified; I25.10 Atherosclerotic heart disease of native coronary artery without angina pectoris; B17.9 Acute viral hepatitis, unspecified; E11.22 Type 2 diabetes mellitus with diabetic chronic kidney disease; I13.2 Hypertensive heart and chronic kidney disease with heart failure and with stage 5 chronic kidney disease, or end stage renal disease; I25.5 Ischemic cardiomyopathy; Z99.2 Dependence on renal dialysis; D50.9 Iron deficiency anemia, unspecified; E11.51 Type 2 diabetes mellitus with diabetic peripheral angiopathy without gangrene; E66.9 Obesity, unspecified; E78.2 Mixed hyperlipidemia; E87.1 Hypo-osmolality and hyponatremia; F32.9 Major depressive disorder, single episode, unspecified; F41.9 Anxiety disorder, unspecified; I34.0 Nonrheumatic mitral (valve) insufficiency; Z51.5 Encounter for palliative care; Z66 Do not resuscitate; Z74.01 Bed confinement status; Z79.02 Long term (current) use of antithrombotics/antiplatelets; Z79.82 Long term (current) use of aspirin; Z79.899 Other long term (current) drug therapy; Z89.421 Acquired absence of other right toe(s); Z68.29 Body mass index [BMI] 29.0-29.9, adult
CPT/HCPCS: 32555; 36415; 36600; 71045; 76705; 80048; 80053; 80061; 82040; 82140; 82248; 82533; 82565; 82728; 82803; 82945; 82948; 83036; 83540; 83550; 83615; 83735; 83880; 83986; 84100; 84155; 84157; 84443; 84520; 85014; 85018; 85025; 85027; 85610; 85730; 86701; 86704; 86706; 87071; 87116; 87205; 87206; 87340; 87390; 87520; 88108; 88305; 89051; 90935; 92950; 93460; 94660; 97039; C1760; C1894; G0378; J0171; J0330; J0461; J0583; J0885; J1265; J1644; J1756; J1815; J2405; J3490; J7030; P9046; Q9967